=== PATIENT | female | born 1970 | race Caucasian/White ===

== ENCOUNTER 2019-12-09 15:46 | Emergency (ER) | payer OTHER, SELFPAY ==
[2019-12-09 15:52] VITALS: BP 147/75; PULSE 81; RESP 16; TEMP 36.8; O2SAT 98
--- NOTE | 2019-12-09 16:12 | ED.EYEPROB ---
HPI - Eye Problem General Chief complaint: Eye Problems Stated complaint: right eye Time Seen by Provider: 12/09/19 16:12 Source: patient Mode of arrival: ambulatory Limitations: no limitations History of Present Illness HPI Narrative: Fito Finn is a 49 yo female with right eye pain and small lesion in outer canthus lower right eye-states eye was crusted this morning and was painful. Is been evolving for the past 2 days. Yesterday while on corner of eye was itchy and painful Related Data Allergies Allergy/AdvReac Type Severity Reaction Status Date / Time No Known Allergies Allergy Verified 12/09/19 16:02 Review of Systems Review of Systems: Narrative: CONSTITUTIONAL: Denies fever, chills, sweats. EYES: Denies visual changes, mild redness, discharge only morning. Bump on lower outer lid ENT: Denies rhinorrhea, congestion, sore throat, otalgia. CARDIOVASCULAR: Denies chest pain, palpitations, edema. RESPIRATORY: Denies dyspnea, wheezing, cough GASTROINTESTINAL: Denies abdominal pain, nausea, vomiting, diarrhea. GENITOURINARY: Denies dysuria, hematuria, abnormal discharge SKIN: Denies rash or itching. NEUROLOGIC: Denies numbness, or focal weakness. PSYCHIATRIC: Denies anxiety or depression. [facility] Family History Family History Other No acute medical problems Social History Social History (Updated 12/09/19 @ 16:26 by Macy Neely CNP) Smoking status: Never smoker Alcohol intake: never Comments At time of signature, I agree with nursing past medical, surgical, social and family history. There is no relevant family history pertinent to the presenting complaint. Exam Narrative: Exam Narrative: GENERAL: This is a well-nourished, well-developed patient. HEAD: normocephalic, atraumatic. EYES: PERRL. Sclera mild injection Vision is grossly intact. Small bump noted in outer canthus of the lower lid, tenderness. Of lesion; no jenelle-ocular tenderness noted EARS: External ears normal. Hearing grossly intact. NOSE: External nose normal without nasal discharge, nares without redness, no rhinorrhea. THROAT: Mucous membranes moist, NECK: Neck supple, CARDIOVASCULAR: Regular rate and rhythm without murmurs, gallops, or rubs. RESPIRATORY: Clear to auscultation. Breath sounds equal bilaterally. No wheezes, rales, or rhonchi. GASTROINTESTINAL: Abdomen soft, SKIN: warm, intact with no suspicious lesions or rash, good texture and turgor. NEURO: awake, alert, and oriented to person, place and time. There were no obvious focal neurologic abnormalities. Steady gait EXTREMITIES: Normal range of motion. BACK: Nontender without deformity Course Course Emergency Course: Started on polymyxin eye ointment; warm soaks 2-3 times a day to use ointment and warm soaks 5 days Vital Signs Vital signs: Vital Signs Temperature 98.3 F 12/09/19 15:52 Pulse Rate 81 12/09/19 15:52 Respiratory Rate 16 12/09/19 15:52 Blood Pressure 147/75 H 12/09/19 15:52 Pulse Oximetry 98 12/09/19 15:52 Temperature 98.3 F 12/09/19 15:52 Pulse Rate 81 12/09/19 15:52 Respiratory Rate 16 12/09/19 15:52 Blood Pressure 147/75 H 12/09/19 15:52 Pulse Oximetry 98 12/09/19 15:52 MDM - Eye Problem Differential Diagnosis Differential diagnosis: Likely corneal abrasion, conjunctivitis and other (Hordeolum versus conjunctivitis) Discharge Plan Discharge Clinical Impression: Bacterial conjunctivitis Hordeolum Qualifiers: Hordeolum type: externum Laterality: right Eyelid: lower Qualified Code(s): H00.012 - Hordeolum externum right lower eyelid Patient Disposition: Home, Self-Care Condition: Stable Instructions: Stye (ED), Conjunctivitis (ED) Prescriptions: New hyhkzvpt-qjzxqxqghq-etohfpyjk 3.5-400-10,000 bz-vrbq-rdzo/g ointment 1 applic EACH EYE TID Qty: 3.5 RF: 0 Follow-up/Referrals: Louann,PRIYANKA Jacinto [Primary Care Provider] - Time
== END 2019-12-09 16:45 | disposition home or self-care (01) ==
PROVIDERS: Emergency Provider Nurse Practitioner; PCP Physician Assistant
DX: H10.9 Unspecified conjunctivitis (principal); H00.012 Hordeolum externum right lower eyelid
CPT/HCPCS: 99213; G0463

== ENCOUNTER 2021-08-13 15:43 | Emergency (ER) | payer OTHER, SELFPAY ==
[2021-08-13 15:50] VITALS: BP 142/83; PULSE 68; RESP 20; TEMP 36.1; O2SAT 98
--- NOTE | 2021-08-13 16:18 | ED.DENTAL ---
HPI - Dental/Oral General Chief complaint: Dental/Oral Stated complaint: tooth infection Time Seen by Provider: 08/13/21 16:18 Source: patient Mode of arrival: ambulatory Limitations: no limitations History of Present Illness HPI Narrative: 51 yo F presents with c/o R lower dental pain that started last night. Woke up today with swelling to R lower jaw. Has been taking ibuprofen and tylenol to relieve pain. Called dentist and no longer taking her insurance. States that she recently ate popcorn and had a few kernels stuck in teeth. afebrile. All systems reviewed and negative except as noted above. Related Data Allergies Allergy/AdvReac Type Severity Reaction Status Date / Time No Known Allergies Allergy Verified 12/09/19 16:02 Review of Systems Review of Systems: CONSTITUTIONAL: Denies fever, chills, or sweats. EYES: Denies visual changes, redness, or discharge. ENT: Denies rhinorrhea, congestion, sore throat, or otalgia. Reports right lower dental pain with facial swelling. CARDIOVASCULAR: Denies chest pain, palpitations, or edema. RESPIRATORY: Denies cough or dyspnea. GASTROINTESTINAL: Denies abdominal pain, nausea, vomiting, or diarrhea. GENITOURINARY: Denies dysuria or hematuria. SKIN: Denies rash or itching. MUSCULOSKELETAL: Denies back pain, joint pain, or myalgia. NEUROLOGIC: Denies headache, numbness, or weakness. PSYCHIATRIC: Denies anxiety or depression. All other systems reviewed are negative, except as documented in HPI. PMFSH Family History Family History Other No acute medical problems Social History Social History (Updated 12/09/19 @ 16:26 by Macy Neely CNP) Smoking status: Never smoker Alcohol intake: never Comments At time of signature, agree with nursing past medical, surgical, social and family history. There is no relevant family history pertinent to the presenting complaint. Exam Narrative: GENERAL: This is a well-nourished, well-developed patient, in no apparent distress. HEAD: normocephalic, atraumatic. mild swelling to R lower saw. no fluctuance. no erythema or warmth to skin. EYES: PERRL. Sclera clear/white. Vision is grossly intact. EARS: External ears normal, auditory canals clear and without drainage, TMs normal without perforation. Hearing grossly intact. NOSE: External nose normal with no obvious nasal discharge, nares without redness, no rhinorrhea. THROAT: Mucous membranes moist, posterior pharynx clear. NECK: Neck supple, non-tender without lymphadenopathy, masses or thyromegaly. CARDIOVASCULAR: Regular rate and rhythm without murmurs, gallops, or rubs. RESPIRATORY: Clear to auscultation. Breath sounds equal bilaterally. No wheezes, rales, or rhonchi. GASTROINTESTINAL: Abdomen soft, non-tender, nondistended. Bowel sounds are active. No hepato-splenomegaly, or palpable masses. No guarding. SKIN: warm, Dry, intact with no suspicious lesions or rash, good texture and turgor. NEURO: awake, alert, and oriented to person, place and time. There were no obvious focal neurologic abnormalities. EXTREMITIES: No joint tenderness, effusion, or edema noted. No calf tenderness. Negative Homans sign bilaterally. BACK: Nontender without deformity. No CVA tenderness. HENMT: Teeth image: 1. tenderness to tooth #27. Erythema to gums surround tooth. no fluctuance noted. Course Course Level of Care: Express Care Visit Vital Signs Vital signs: Vital Signs Temperature 36.1 C L 08/13/21 15:50 Pulse Rate 68 08/13/21 15:50 Respiratory Rate 20 08/13/21 15:50 Blood Pressure 142/83 H 08/13/21 15:50 Pulse Oximetry 98 08/13/21 15:50 Temperature 36.1 C L 08/13/21 15:50 Pulse Rate 68 08/13/21 15:50 Respiratory Rate 20 08/13/21 15:50 Blood Pressure 142/83 H 08/13/21 15:50 Pulse Oximetry 98 08/13/21 15:50 Reviewed MDM - Dental/Oral MDM Narrative Medical decision making narrative: Patient is aware of diagn
== END 2021-08-13 16:37 | disposition home or self-care (01) ==
PROVIDERS: Emergency Provider Nurse Practitioner Family; PCP Physician Assistant
DX: K08.89 Other specified disorders of teeth and supporting structures (principal)
CPT/HCPCS: 99213; G0463

== ENCOUNTER 2022-03-10 15:38 | Emergency (ER) | payer OTHER, SELFPAY ==
--- NOTE | 2022-03-10 15:41 | ED.EXTPRO ---
HPI - Extremity Problem General Chief complaint: Extremity Problem,Nontraumatic Stated complaint: Right knee pain Time Seen by Provider: 03/10/22 15:41 Source: patient Mode of arrival: ambulatory Limitations: no limitations History of Present Illness HPI Narrative: Ms. Finn is a 51-year-old female patient presenting to the clinic today with complaints of right knee pain x2 days. She reports she was outside playing with her grand kids and tweaked her knee. She reports that she is also been standing on concrete at work and that does not seem to help it. She reports every time she twisted it feels as though it is a pulling sensation with burning and then it spasms. Related Data Allergies Allergy/AdvReac Type Severity Reaction Status Date / Time No Known Allergies Allergy Verified 12/09/19 16:02 Review of Systems Review of Systems: Pertinent positives per HPI. Patient denies any fever, chills, rash, headache, visual changes, dizziness, cough, runny nose, sore throat, shortness of breath, chest pain, palpitations, nausea, vomiting, diarrhea, constipation, abdominal pain, or any urinary issues. [facility] Family History Family History Other No acute medical problems Social History Social History Smoking status: Never smoker Alcohol intake: never Comments At the time of my signature, I reviewed and agree with the nursing past medical, surgical, social, and family history. There is no relevant family history pertinent to the patient complaint. Exam Narrative: General: Well-developed, well nourished, in no apparent distress Head: Normocephalic, atraumatic. Cardio: Regular rate and rhythm, s1 and s2 normal, no murmur appreciated. Resp: Clear to auscultation bilaterally, no rhonchi, rales, wheezing or rubs. Musculoskeletal: No deformity, no swelling noted, tender to palpation over the MCL and the hamstring tendon, pain with full extension of the right knee to the hamstring tendon, grossly normal range of motion, muscle strength strong and equal, peripheral pulse strong, no edema, no cyanosis, normal gait and station Course Course Emergency Course: Portions of this record may have been created with voice recognition software. Level of Care: Express Care Visit Vital Signs Vital signs: Vital signs reviewed MDM - Extremity (Nontraumatic) MDM Narrative Medical decision making narrative: At the time of visit patient is resting comfortably on the exam table. She has pain over the hamstring tendon and the MCL ligament. I suspect the patient may have a muscle strain, tendon strain, and MCL strain. Supportive measures were discussed with the patient she voiced understanding of discharge instructions and agrees with the treatment plan. Discharge Plan Discharge Clinical Impression: Strain of insertion of tendon of hamstring muscle MCL sprain of right knee Qualifiers: Encounter type: initial encounter Qualified Code(s): S83.411A - Sprain of medial collateral ligament of right knee, initial encounter Patient Disposition: Home, Self-Care Condition: Stable Instructions: Antibiotic Form, Knee Sprain (ED), Hamstring Injury (ED), Hinged Knee Brace (ED) Additional Instructions: Suspicious for tendon strain/MCL Rest, ice, and elevate Wear hinged knee brace while up and walking Take Tylenol/Motrin as needed for pain Follow-up with your PCP in 1 week if symptoms persist or sooner if they worsen Prescriptions: New cyclobenzaprine 10 mg tablet 10 mg PO Q8H PRN (Reason: muscle spasm) 7 Days Qty: 21 0RF naproxen 500 mg tablet 500 mg PO BID PRN (Reason: pain) 7 Days Qty: 14 0RF Follow-up/Referrals: Louann,PRIYANKA Jacinto [Primary Care Provider] - Stand Alone Forms: Work/School Release IP Time of Disposition: 15:57 Quality NIHSS Nursing Documentation ED NIHSS nursing d
[2022-03-10 15:48] VITALS: BP 132/64; PULSE 77; RESP 16; TEMP 36.3; O2SAT 97
== END 2022-03-10 16:07 | disposition home or self-care (01) ==
PROVIDERS: Emergency Provider Nurse Practitioner Family; PCP Physician Assistant
DX: S83.411A Sprain of medial collateral ligament of right knee, initial encounter (principal); X58.XXXA Exposure to other specified factors, initial encounter
CPT/HCPCS: 99213; G0463

== ENCOUNTER 2022-07-31 15:14 | Emergency (ER) | payer OTHER, SELFPAY ==
[2022-07-31 15:22] VITALS: BP 147/79; PULSE 81; RESP 20; TEMP 36.8; O2SAT 100
--- NOTE | 2022-07-31 15:42 | ED.URI ---
HPI - URI/Sore Throat General Chief Complaint: Upper Respiratory Infection Stated Complaint: strep throat Time Seen by Provider: 07/31/22 15:42 History of Present Illness HPI Narrative: Patient presents with a sore throat. Patient states her grandchild was visiting 10 her couple days ago and recently tested positive for strep throat. No trouble swallowing no drooling. Patient denies any other symptoms or concerns Related Data Allergies Allergy/AdvReac Type Severity Reaction Status Date / Time No Known Allergies Allergy Verified 12/09/19 16:02 Review of Systems Review of Systems: CONSTITUTIONAL: Denies fever, chills, or sweats. EYES: Denies visual changes, redness, or discharge. ENT: Denies rhinorrhea, congestion, sore throat, or otalgia. CARDIOVASCULAR: Denies chest pain, palpitations, or edema. RESPIRATORY: Denies cough or dyspnea. GASTROINTESTINAL: Denies abdominal pain, nausea, vomiting, or diarrhea. GENITOURINARY: Denies dysuria or hematuria. SKIN: Denies rash or itching. MUSCULOSKELETAL: Denies back pain, joint pain, or myalgia. NEUROLOGIC: Denies headache, numbness, or weakness. PSYCHIATRIC: Denies anxiety or depression. [facility] Family History Family History Other No acute medical problems Social History Social History Smoking status: Never smoker Alcohol intake: never Comments At time of signature, agree with nursing past medical, surgical, social and family history. There is no relevant family history pertinent to the presenting complaint Exam Narrative: GENERAL: Well-appearing, well-nourished, and in no acute distress. HEAD: Normocephalic, atraumatic. EYES: PERRLA and EOMI. ENT: Nares clear, no rhinorrhea or epistaxis. Mucous membranes moist. Mild pharyngeal erythema, no trismus no trouble swallowing can open mouth fully NECK: Supple. CHEST: Clear to auscultation. No respiratory distress. HEART: Regular rate and rhythm. No murmur heard. Normal peripheral pulses. ABDOMEN: Soft, nontender, nondistended, normal active bowel sounds. EXTREMITIES: Normal range of motion. No edema. SKIN: Warm, dry, no rash. NEURO: No focal deficits. Alert and oriented x3. Gely Coma Scale Eye Opening: Spontaneous 4 [place] Coma Scale Motor: Obeys Commands 6 [place] Coma Scale Verbal: Oriented 5 [place] Coma Scale Total 15 Course Course Level of Care: Express Care Visit Vital Signs Vital signs: Vital Signs Temperature 36.8 C 07/31/22 15:22 Pulse Rate 81 07/31/22 15:22 Respiratory Rate 20 07/31/22 15:22 Blood Pressure 147/79 H 07/31/22 15:22 Pulse Oximetry 100 07/31/22 15:22 Oxygen Delivery Room Air 07/31/22 15:22 Temperature 36.8 C 07/31/22 15:22 Pulse Rate 81 07/31/22 15:22 Respiratory Rate 20 07/31/22 15:22 Blood Pressure 147/79 H 07/31/22 15:22 Pulse Oximetry 100 07/31/22 15:22 Oxygen Delivery Room Air 07/31/22 15:22 By blood pressure follow-up MDM - URI/Sore Throat Lab Data Labs: Strep Screen Positive Group A Strep *(Reference Range: Negative)* Discharge Plan Discharge Clinical Impression: Pharyngitis Patient Disposition: Home, Self-Care Condition: Stable Instructions: Antibiotic Form, Strep Throat (ED) Additional Instructions: Increase fluids especially juices and water Lime-rxq-kbguwkz cough and cold medicine of your choice for your symptoms Salt water gargles, throat lozenges or throat sprays as desired change toothbrush in 3-5 days Antibiotic as directed--finished the medication It may take the antibiotic 2-3 days to control the fever/symptoms ) You tested positive for Group A strep. Infection control: *Take the entire course of antibiotics. *Throw away your current toothbrush and begin using a new toothbrush in 48 hours in order to prevent re-infe
== END 2022-07-31 15:47 | disposition home or self-care (01) ==
PROVIDERS: Emergency Provider Nurse Practitioner Family
DX: J02.9 Acute pharyngitis, unspecified (principal)
CPT/HCPCS: 87880; 99213; G0463

== ENCOUNTER 2022-08-06 07:16 | Outpatient (CLI) | payer OTHER, SELFPAY ==
--- NOTE | ~2022-08-06 | CT_ITS ---
CT of the Abdomen and Pelvis: Indication: Menorrhagia Technique: 2.5 mm axial scans were obtained through the abdomen and pelvis following intravenous adm inistration of 100 cc of Omnipaque 350. Dose reduction technique was used on this scan by utilizing a utomated exposure control and iterative reconstruction technique. The dose-length product (DLP) was 1 573.96 mGy-cm. Findings: Scans through the lung bases are unremarkable. The liver, spleen, pancreas, gallbladder, adrenals and kidneys are within normal limits. No evidence of aortic aneurysm. No lymphadenopathy. No bowel obstruction or bowel wall thickening. There is no evidence to suggest acute appendicitis. Images through the pelvis were performed. Urinary bladder unremarkable. No adnexal mass seen. No asci christelle. There is severe degenerative spondylitic change of the lumbar spine, probable severe canal stenosis a t L4-L5 and L2-L3. Impression: No acute abnormality seen. No significant abnormality of the system identified on this exam. Advanced degenerative spondylosis of the lumbar spine, as noted above. Reviewed, dictated and finalized at location . [employer] Impression: No acute abnormality seen. No significant abnormality of the system identifi ed on this exam. Advanced degenerative spondylosis of the lumbar spine, as noted above.
== END 2022-08-06 07:17 | disposition home or self-care (01) ==
LOC: ANHIMG 07:20
PROVIDERS: PCP Physician Assistant; Visit Provider Nurse Practitioner Obstetrics & Gynecology
DX: R19.07 Generalized intra-abdominal and pelvic swelling, mass and lump (principal); M47.816 Spondylosis without myelopathy or radiculopathy, lumbar region
CPT/HCPCS: 74177; Q9967

== ENCOUNTER 2023-09-24 19:41 | Observation (INO) | payer OTHER, SELFPAY ==
--- NOTE | ~2023-09-24 | CT_ITS ---
EXAMINATION: CT abdomen pelvis w con DATE: 09/24/2023 20:49 INDICATION: abdominal pain TECHNIQUE: Computed tomography (CT) of the abdomen and pelvis was performed with 100 mL Omnipaque-350 intravenous contrast. Automated exposure control and iterative reconstruction technique were employe d. The dose-length product was 1740.36 mGy-cm. COMPARISON: 08/06/2022, report only. FINDINGS: Lower thorax: Unremarkable Liver: Diffuse fatty infiltration. Enlarged. Biliary/Gallbladder: Gallbladder is normal. No bile duct dilation. Pancreas: Moderate atrophy. Spleen: Enlarged. Adrenals:No mass. Kidneys: Mild stranding about the left renal pelvis and ureter. Patchy enhancement in the left lower pole. Mild pelviectasis. Normal right kidney. No suspicious mass. No obstructing calcification. GI tract: No small or large bowel dilation. Normal appendix. Mesentery/Peritoneum: No ascites, mass, or free air. Retroperitoneum: No mass. Pelvis: Moderate urinary bladder wall edema. Fibroid uterus. Normal bilateral ovaries. Soft Tissues: Soft tissues and body wall unremarkable. Bones: No acute osseous finding. IMPRESSION: Hepatosplenomegaly and hepatic steatosis. Findings suggestive of cystitis with ascending infection on the left and left pyelonephritis. Reviewed, dictated and finalized at location K. IMPRESSION: Hepatosplenomegaly and hepatic steatosis. Findings suggestive of cystitis with ascending infection on the left and left p yelonephritis.
[2023-09-24 19:35] VITALS: BP 150/67; PULSE 92; RESP 24; TEMP 36.7; O2SAT 98
[2023-09-24 19:50] VITALS: PULSE 98; RESP 15; O2SAT 98
[2023-09-24] MEDS: MORPHINE SULFATE (*CRX) 4 MG/ML INJ IV PUSH (19:59)
[2023-09-24] MEDS: ONDANSETRON INJ 4 MG/2 ML VIAL IV PUSH (19:59)
[2023-09-24] MEDS: SODIUM CHLORIDE 0.9% IV 1,000 ML 999 ML IV CONT (19:59)
--- NOTE | 2023-09-24 20:02 | ED.GENADULT ---
HPI - General Adult General Chief complaint: Abdominal Pain Stated complaint: abd pain Time Seen by Provider: 09/24/23 19:45 History of Present Illness HPI narrative: patient is 53-year-old female presents emergency department with chief of abdominal pain. Patient reports she is being followed by OBGYN for some growths in her uterus and reports that she has had ultrasounds and also has recently been passing tissue. The patient reports that she started having severe abdominal pain feels though she is having contractions patient reports that she now has diffuse pain throughout her abdomen reports that has not improved by anything. Related Data Home Medications Medication Instructions Recorded Confirmed No Home Medications 09/25/23 09/25/23 Allergies Allergy/AdvReac Type Severity Reaction Status Date / Time No Known Allergies Allergy Verified 09/24/23 19:51 Review of Systems Review of Systems: A 10 system review of systems was completed on the patient and is negative except for what is stated in the HPI. Nursing and ancillary documentation was reviewed. [facility] Past Medical History Medical History (Updated 09/25/23 @ 16:27 by Thu Guerrero APRN) Diabetes type 2, uncontrolled Uterine fibroid Family History Family History Other No acute medical problems Social History Social History Smoking status: Never smoker Alcohol intake: never Substance use: never Substance use type: does not use Do You Feel Safe in your Home?: Yes Lack of Transportation: No Lack of Food: Never True Current Housing: I Have Housing Concerned About Future Housing: No Difficulty Paying Gas/Electric Bills: No Difficulty Paying for Meds: No Currently Unemployed: No Education: High School Diploma/GED Difficulty w/ Childcare or Family Care: No Spiritual care concerns: No Exam Narrative: GENERAL: Well-appearing, well-nourished, and in no acute distress. HEAD: Normocephalic, atraumatic. EYES: PERRLA and EOMI. ENT: Nares clear, no rhinorrhea or epistaxis. Mucous membranes moist. NECK: Supple. CHEST: Clear to auscultation. No respiratory distress. HEART: Regular rate and rhythm. No murmur heard. Normal peripheral pulses. ABDOMEN: Soft, Diffusely tender to palpation, nondistended, normal active bowel sounds. EXTREMITIES: Normal range of motion. No edema. SKIN: Warm, dry, no rash. NEURO: No focal deficits. Alert and oriented x3. PSYCH: Normal mood and affect. Course Vital Signs Vital signs: Vital Signs Temperature 36.7 C 09/24/23 19:35 Pulse Rate 92 09/24/23 19:35 Respiratory Rate 24 H 09/24/23 19:35 Blood Pressure 150/67 H 09/24/23 19:35 Pulse Oximetry 98 09/24/23 19:35 Oxygen Delivery Room Air 09/24/23 19:35 Temperature 36.7 C 09/26/23 06:00 Pulse Rate 86 09/26/23 06:00 Respiratory Rate 18 09/26/23 06:00 Blood Pressure 150/72 H 09/26/23 06:00 Pulse Oximetry 93 09/26/23 06:00 Oxygen Delivery Room Air 09/25/23 08:00 Medical Decision Making MDM Narrative Medical decision making narrative: Differential diagnosis includes intra-abdominal infection, pyelonephritis, UTI, abdominal mass, laboratory studies were obtained on the patient showed CBC with white count 12.6 electrolytes are within normal limits urinalysis showed greater than 100 white blood cells 3+ bacteria electrolytes showed a elevated blood sugar the patient has no prior history of diabetes CT scan of the abdomen pelvis showed Hepatosplenomegaly and hepatic steatosis. Findings suggestive of cystitis with ascending infection on the left and left pyelonephritis. the patient is feeling much better this time patient given a dose Rocephin in the emergency department. Given the hyperglycemia and the pyelonephritis the case will be discussed with
[2023-09-24 20:14] LABS: Basophils Percent Auto 0.2 % (0.2-1.2); Eosinophils Absolute Auto 0.1 K/mm3 (0-0.3); Eosinophils Percent Auto 0.4 % (0-4.4); Hemoglobin 14.7 g/dL (12.0-15.0); Immature Granulocyte Absolute 0.06 K/mm3 (0.00-0.031); Immature Granulocyte Percent A 0.5 % (0-0.5); Lymphocytes Absolute Auto 0.61 K/mm3 (0.9-3.2); Lymphocytes Percent Auto 4.8 % (18.3-44.2); Mean Corpuscular HGB Conc 32.7 g/dl (32-36); Mean Corpuscular Hemoglobin 28.5 pg (26-34); Mean Corpuscular Volume 87.2 fl (80-100); Mean Platelet Volume 9.3 fl (7.4-10.4); Monocytes Absolute Auto 0.3 K/mm3 (0.1-0.6); Monocytes Percent Auto 2.3 % (2.6-8.5); Neutrophils Absolute Auto 11.6 K/mm3 (1.3-6.7); Neutrophils Percent Auto 91.8 % (45.5-73.1); Platelet Count Result 195 k/mm3 (150-375); Red Blood Count 5.16 M/mm3 (4.2-5.4); White Blood Count 12.6 K/mm3 (4.5-10.0)
[2023-09-24 20:15] VITALS: PULSE 94; RESP 15; O2SAT 96
[2023-09-24 20:29] LABS: Alanine Aminotransferase 30 U/L (6-35); Albumin Level 4.4 g/dL (3.5-5.1); Alkaline Phosphatase 57 U/L (38-126); Anion Gap 7 mmol/L (4-12); Aspartate Amino Transferase 22 U/L (14-36); Bilirubin,Total 0.6 mg/dL (0.2-1.3); Blood Urea Nitrogen 11 mg/dL (7-17); Calcium 9.4 mg/dL (8.4-10.2); Carbon Dioxide 26 mmol/L (22-30); Chloride 101 mmol/L (98-107); Estimated CRCL calculation 116 ml/min; Estimated Glomerular Filt Rate > 60; Glucose 328 mg/dL (65-110); Lipase 57 U/L (23-300); Potassium 4.2 mmol/L (3.4-5.0); Sodium 134 mmol/L (137-145)
[2023-09-24 20:40] LABS: Appearance Urine Cloudy (Clear); Bacteria Urine 3+ /hpf; Bilirubin Urine Negative (Negative); Blood Urine 3+ (Negative); Color Urine Yellow (Yellow); Glucose Urine UA 3+ mg/dL (Negative); Ketones Urine Negative (Negative); Leukocyte Esterase Ur 2+ LEU/UL (Negative); Nitrate Urine Positive (Negative); Non Pathogenic Casts 0-2; Protein Urine 2+ mg/dL (Negative); Specific Grav Ur 1.024 (1.001-1.035); Squamous Epithelial Cell Urine None Seen /hpf (Few); Urobilinogen Urine 0.2 mg/dL (<2.0); WBC Urine >100 /hpf (0-3); pH Urine 5.5 (5.0-9.0)
[2023-09-24 20:42] LABS: Add Urine Microscopic? YES
[2023-09-24 21:10] VITALS: BP 168/77; PULSE 92; RESP 18; O2SAT 96
[2023-09-24 21:51] LABS: Hemoglobin A1C 11.1 % (<5.7)
[2023-09-24] MEDS: SODIUM CHLORIDE 0.9% IV 1,000 ML 125 ML IV CONT ×2 (21:54→23:24)
--- NOTE | 2023-09-24 21:55 | PM.IMHP ---
H&P: HPI History of Present Illness Date/Time: 09/24/23 21:55 Chief Complaint: abdominal cramps Narrative: This is a 53-year-old female with past medical history significant for morbid obesity, uterine fibroids, patient presents to the emergency room due to abdominal pain, cramping, nausea, vomiting. Patient has been in her usual state of health up until today. Denies any fevers, rigors, chills, bleeding. Preliminary workup was significant for urinalysis numerous WBCs present. A CT of abdomen and pelvis was significant for ascending pyelonephritis. Patient has been admitted for further evaluation management and treatment. EXAMINATION: CT abdomen pelvis w con DATE: 09/24/2023 20:49 INDICATION: abdominal pain TECHNIQUE: Computed tomography (CT) of the abdomen and pelvis was performed with 100 mL Omnipaque-350 intravenous contrast. Automated exposure control and iterative reconstruction technique were employed. The dose-length product was 1740.36 mGy-cm. COMPARISON: 08/06/2022, report only. FINDINGS: Lower thorax: Unremarkable Liver: Diffuse fatty infiltration. Enlarged.? Biliary/Gallbladder: Gallbladder is normal. No bile duct dilation. Pancreas: Moderate atrophy. Spleen: Enlarged. Adrenals:No mass. Kidneys: Mild stranding about the left renal pelvis and ureter. Patchy enhancement in the left lower pole. Mild pelviectasis. Normal right kidney. No suspicious mass. No obstructing calcification. GI tract: No small or large bowel dilation. Normal appendix. Mesentery/Peritoneum: No ascites, mass, or free air. Retroperitoneum: No mass. Pelvis: Moderate urinary bladder wall edema. Fibroid uterus. Normal bilateral ovaries. Soft Tissues: Soft tissues and body wall unremarkable. Bones:? No acute osseous finding. IMPRESSION: Hepatosplenomegaly and hepatic steatosis. Findings suggestive of cystitis with ascending infection on the left and left pyelonephritis. Review of Systems Review of Systems: abdominal cramping, nausea, vomiting Constitutional: Constitutional: Denies chills and Denies fever(s) Eyes: Eyes: Denies change in vision ENT: Denies dysphagia and Denies odynophagia Cardiovascular: Cardiovascular: Denies chest pain, Denies radiating jaw, neck or arm pain and Denies palpitations Respiratory: Respiratory: Denies chest congestion, Denies cough, Denies excessive phlegm production and Denies dyspnea Gastrointestinal: Gastrointestinal: Reports abdominal pain, Denies dyspepsia, Denies heartburn, Denies diarrhea, Reports nausea and Reports vomiting Genitourinary: Genitourinary: Denies dysuria and Reports pelvic pain Musculoskeletal: Musculoskeletal: Denies back pain Integumentary/Breasts: Skin/Breast: Denies rash Neurologic: Denies focal weakness and Denies Sensory deficit (Neuro) Psychiatric: Psychiatric: Reports no additional psychiatric complaints and Reports as per HPI Endocrine: Endocrine: Denies cold intolerance, Denies fatigue, Denies flushing, Denies heat intolerance, Denies polyphagia, Denies polydipsia, Denies polyuria and Denies palpitations Hematologic/Lymphatic: Hematologic/Lymphatic: Reports no additional hematologic/lymphatic complaints and Reports as per HPI Allergic/Immunologic: Allergic/Immunologic: Reports no additional allergic/immunologic complaints and Reports as per HPI PMFSH Family History Family History Other No acute medical problems Social History Social History Smoking status: Never smoker Alcohol intake: never Meds Home Medications and Allergies Home Medications Medication Instructions Recorded Confirmed Type amoxicillin 500 mg capsule 500 mg PO Q12H 10 days #20 caps 07/31/22 Rx cephalexin 500 mg capsule 500 mg PO TID 7 days #21 caps 09/24/23 Rx hydrocodone 5 mg-acetaminophen 325 1 tablet PO Q6H PRN pain 3 days 09/24/23
--- NOTE | 2023-09-24 22:11 | PC.NURSE ---
care and report given to BRITTANY Mcneil. all questions answered.
[2023-09-24 22:49] VITALS: BMI 50.4
[2023-09-24 22:51] VITALS: BP 157/70; PULSE 92; RESP 20; TEMP 37.3; O2SAT 92; BMI 50.4
[2023-09-25 06:00] VITALS: BP 134/65; PULSE 88; RESP 22; TEMP 36.1; O2SAT 94
[2023-09-25 07:28] LABS: Glucose Point of Care 330 mg/dl (65-105)
[2023-09-25 11:20] LABS: Glucose Point of Care 351 mg/dl (65-105)
[2023-09-25 12:05] LABS: Basophils Percent Auto 0.3 % (0.2-1.2); Eosinophils Percent Auto 0.5 % (0-4.4); Hematocrit 41.5 % (37.0-47.0); Hemoglobin 13.5 g/dL (12.0-15.0); Immature Granulocyte Absolute 0.02 K/mm3 (0.00-0.031); Immature Granulocyte Percent A 0.3 % (0-0.5); Lymphocytes Percent Auto 13.9 % (18.3-44.2); Mean Corpuscular HGB Conc 32.5 g/dl (32-36); Mean Corpuscular Hemoglobin 28.4 pg (26-34); Mean Corpuscular Volume 87.4 fl (80-100); Mean Platelet Volume 9.6 fl (7.4-10.4); Monocytes Absolute Auto 0.5 K/mm3 (0.1-0.6); Monocytes Percent Auto 6.1 % (2.6-8.5); Neutrophils Absolute Auto 6.3 K/mm3 (1.3-6.7); Neutrophils Percent Auto 78.9 % (45.5-73.1); Platelet Count Result 159 k/mm3 (150-375); Red Blood Count 4.75 M/mm3 (4.2-5.4); Red Cell Distribution Width 13.2 % (11.5-14.5); White Blood Count 7.9 K/mm3 (4.5-10.0)
[2023-09-25 12:29] LABS: Alanine Aminotransferase 25 U/L (6-35); Alkaline Phosphatase 50 U/L (38-126); Anion Gap 8 mmol/L (4-12); Aspartate Amino Transferase 17 U/L (14-36); Bilirubin,Total 0.8 mg/dL (0.2-1.3); Blood Urea Nitrogen 10 mg/dL (7-17); Calcium 9.1 mg/dL (8.4-10.2); Carbon Dioxide 25 mmol/L (22-30); Chloride 103 mmol/L (98-107); Estimated CRCL calculation 116 ml/min; Estimated Glomerular Filt Rate > 60; Glucose 336 mg/dL (65-110); Hemoglobin A1C 10.8 % (<5.7); Magnesium 2.3 mg/dL (1.6-2.3); Sodium 136 mmol/L (137-145)
[2023-09-25] MEDS: SODIUM CHLORIDE 0.9% IV 1,000 ML 125 ML IV CONT (12:36)
[2023-09-25] MEDS: INSULIN ASPART (*BKC) 100 UNITS/ML SUB-Q ×3 (12:36→20:35)
--- NOTE | 2023-09-25 13:33 | PCCCNOTE ---
On 09/25/23, the student, [ Crista Escamilla], provided care and completed [facility] documentation on this patient. I have reviewed the student's documentation and agree with the findings.
[2023-09-25 14:00] VITALS: BP 130/85; PULSE 84; RESP 18; TEMP 36.6; O2SAT 98
--- NOTE | 2023-09-25 15:15 | PM.IMPN ---
Progress Note: A&P Assessment and Plan (1) UTI (urinary tract infection): Code(s): N39.0 - Urinary tract infection, site not specified Status: Acute Assessment and Plan: 09/24/23: admit to regular medical floor started on Rocephin await cultures 09/25/23: UTI considered complicated due to the ascending infection on the left and pyelonephritis CT scan of the abdomen and pelvis shows cystitis with ascending infection on the left and left pyelonephritis, hepatosplenomegaly and hepatic steatosis UA showing 2+ protein, 3+ glucose, 3+ urine blood, positive nitrate, 2+ leukocytes, 7-20 urine RBCs, greater than 100 urine wbc's, 3+ bacteria. Urine and blood cultures pending Continue Rocephin 2 g daily (2) Pyelonephritis: Code(s): N12 - Tubulo-interstitial nephritis, not specified as acute or chronic Status: Acute Assessment and Plan: 09/24/23: on antibiotics continue to monitor 09/25/2023: See above plan of care (3) Diabetes type 2, uncontrolled: Status: Acute Assessment and Plan: 09/25/2023: New diagnosed Type II DM this admission Hemoglobin A1c 10.8 High-dose sliding scale insulin ordered Accu-Cheks AC and HS Lantus 10 units at HS ordered Hypoglycemic protocol in place Diabetic diet Consult wellness educator Dietitian consult Patient will need metformin and Lantus on discharge as this is a new diagno (4) Acute hyperglycemia: Code(s): R73.9 - Hyperglycemia, unspecified Status: Acute Assessment and Plan: 09/24/23: will add a hemoglobin A1c cover with insulin sliding scale as needed 09/25/2023: See above plan of care (5) Uterine fibroid: Code(s): D25.9 - Leiomyoma of uterus, unspecified Status: Chronic Assessment and Plan: 09/25/23: CT scan showing uterine fibroids She has a follow-up with Dr. Pritchard who is her FUNERAL HOME ASSISTANT next Tuesday Time Spent With Patient Time with patient: 25 - 35 minutes Subjective Date/time seen: 09/25/23 15:15 Interval history: This is a 53-year-old female who presented to the hospital on 09/24/2023 with complaints of abdominal pain. Workup in the hospital included an abdomen pelvis CT which showed hepatosplenomegaly had hepatic steatosis, cystitis with ascending infection on the left and left pyelonephritis. Initial labs showed a white blood cell count of 12.6, sodium 1-134, blood sugar 328, hemoglobin A1c 11.1. A UA was obtained and showed 2+ protein, 3+ glucose, 3+ urine blood, positive nitrate, 2+ leukocytes, greater than 100 urine wbc's, 11-20 urine RBCs, 3+ bacteria. Blood and urine cultures were obtained and are pending. Patient was given 1 L normal saline, Rocephin, Zofran and morphine while in the ED. On examination today patient is alert and oriented x3, sitting on side of bed. Patient denies any fever, chills, nausea, vomiting, diarrhea, abdominal pain, chest pain, shortness a breath. Labs today reveal white blood cell count that 7.9, sodium 136, blood sugar ranging 330-351, TSH was normal at 1.040. Patient does not recall any diagnosis of type 2 diabetes however her hemoglobin A1c this admission was 10.8.She will need to start on Lantus and Metformin upon discharge. Review of Systems Review of Systems: All systems reviewed & are unremarkable except as noted in HPI and below Constitutional: Constitutional: Reports as per HPI and Reports no additional constitutional complaints Eyes: Eyes: Reports as per HPI and Reports no additional eye complaints ENT: Reports system reviewed and no additional complaints, except as documented and Reports as per HPI Cardiovascular: Cardiovascular: Reports as per HPI and Reports no additional cardiovascular complaints Respiratory: Respiratory: Reports as per HPI and Reports no additional respiratory complaints Gastrointestinal: Gastrointestinal: Reports as per HPI and Reports no additional gastrointestinal complaints Genitourinary: Genitourina
[2023-09-25 16:37] LABS: Glucose Point of Care 306 mg/dl (65-105)
[2023-09-25] MEDS: ACETAMINOPHEN 325 MG TABLET 650 MG PO (18:06)
[2023-09-25] MEDS: INSULIN GLARGINE (*BKC) 100 UNITS/ML 10 UNITS SUB-Q (20:35)
[2023-09-25] MEDS: cefTRIAXone 2 GM/NS 100 ML 2 GM/100 ML BAG IVPB (20:35)
[2023-09-25 20:41] LABS: Glucose Point of Care 309 mg/dl (65-105)
[2023-09-25 21:00] VITALS: BP 137/65; PULSE 91; RESP 14; TEMP 36.4; O2SAT 93
[2023-09-26 06:00] VITALS: BP 150/72; PULSE 86; RESP 18; TEMP 36.7; O2SAT 93
[2023-09-26 06:29] LABS: Basophils Percent Auto 0.3 % (0.2-1.2); Eosinophils Percent Auto 0.1 % (0-4.4); Hematocrit 41.1 % (37.0-47.0); Hemoglobin 12.9 g/dL (12.0-15.0); Immature Granulocyte Absolute 0.04 K/mm3 (0.00-0.031); Immature Granulocyte Percent A 0.6 % (0-0.5); Lymphocytes Absolute Auto 0.68 K/mm3 (0.9-3.2); Mean Corpuscular HGB Conc 31.4 g/dl (32-36); Mean Corpuscular Hemoglobin 28.2 pg (26-34); Mean Corpuscular Volume 89.9 fl (80-100); Mean Platelet Volume 9.3 fl (7.4-10.4); Monocytes Absolute Auto 0.5 K/mm3 (0.1-0.6); Neutrophils Absolute Auto 5.6 K/mm3 (1.3-6.7); Platelet Count Result 154 k/mm3 (150-375); Red Blood Count 4.57 M/mm3 (4.2-5.4); Red Cell Distribution Width 13.1 % (11.5-14.5); White Blood Count 6.8 K/mm3 (4.5-10.0)
[2023-09-26 06:44] LABS: Alanine Aminotransferase 23 U/L (6-35); Albumin Level 3.8 g/dL (3.5-5.1); Alkaline Phosphatase 45 U/L (38-126); Anion Gap 6 mmol/L (4-12); Aspartate Amino Transferase 17 U/L (14-36); Bilirubin,Total 0.8 mg/dL (0.2-1.3); Blood Urea Nitrogen 10 mg/dL (7-17); Calcium 9.2 mg/dL (8.4-10.2); Carbon Dioxide 27 mmol/L (22-30); Chloride 101 mmol/L (98-107); Estimated CRCL calculation 116 ml/min; Estimated Glomerular Filt Rate > 60; Glucose 322 mg/dL (65-110); Potassium 4.4 mmol/L (3.4-5.0); Sodium 134 mmol/L (137-145)
[2023-09-26 08:05] LABS: Glucose Point of Care 295 mg/dl (65-105)
[2023-09-26] MEDS: cefTRIAXone 2 GM/NS 100 ML 2 GM/100 ML BAG IVPB (08:53)
[2023-09-26] MEDS: INSULIN ASPART (*BKC) 100 UNITS/ML SUB-Q ×4 (08:54→21:24)
[2023-09-26 09:00] VITALS: BMI 50.4
--- NOTE | 2023-09-26 09:10 | P.PNIM_ITS ---
Progress Note: A&P Assessment and Plan (1) UTI (urinary tract infection): Code(s): N39.0 - Urinary tract infection, site not specified Status: Acute Assessment and Plan: 09/24/23: ?admit to regular medical floor ?started on Rocephin ?await cultures 09/25/23: * UTI considered complicated due to the ascending infection on the left and pyelonephritis * CT scan of the abdomen and pelvis shows cystitis with ascending infection on the left and left pyelonephritis, hepatosplenomegaly and hepatic steatosis * UA showing 2+ protein, 3+ glucose, 3+ urine blood, positive nitrate, 2+ leukocytes, 7-20 urine RBCs, greater than 100 urine wbc's, 3+ bacteria. * Urine and blood cultures pending * Continue Rocephin 2 g daily 09/26/23: * Urine culture showing E coli preliminary read * blood cultures are still pending * Continue Rocephin 2 g daily (2) Pyelonephritis: Code(s): N12 - Tubulo-interstitial nephritis, not specified as acute or chronic Status: Acute Assessment and Plan: 09/24/23: on antibiotics continue to monitor 09/25/2023: * See above plan of care (3) Diabetes type 2, uncontrolled: Status: Acute Assessment and Plan: 09/25/2023: * New diagnosed Type II DM this admission * Hemoglobin A1c 10.8 * High-dose sliding scale insulin ordered * Accu-Cheks AC and HS * Lantus 10 units at HS ordered * Hypoglycemic protocol in place * Diabetic diet * Consult egg producer * Dietitian consult * Patient will need metformin and Lantus on discharge as this is a new diagnosis 09/26/23: * Continue with high-dose sliding scale insulin * Will increase Lantus to 20 units at bedtime * Will start metformin 1000 mg b.i.d. * No other changes, continue with current treatment plan (4) Acute hyperglycemia: Code(s): R73.9 - Hyperglycemia, unspecified Status: Acute Assessment and Plan: 09/24/23: will add a hemoglobin A1c cover with insulin sliding scale as needed 09/25/2023: * See above plan of care (5) Uterine fibroid: Code(s): D25.9 - Leiomyoma of uterus, unspecified Status: Chronic Assessment and Plan: 09/25/23: * CT scan showing uterine fibroids * She has a follow-up with Dr. Pritchard who is her TYPE PROOF REPRODUCER next Tuesday09/26/23: * no change Time Spent With Patient Time with patient: 25 - 35 minutes Subjective Date/time seen: 09/26/23 09:10 Interval history: 09/25/23: This is a 53-year-old female who presented to the hospital on 09/24/2023 with complaints of abdominal pain. Workup in the hospital included an abdomen pelvis CT which showed hepatosplenomegaly had hepatic steatosis, cystitis with ascending infection on the left and left pyelonephritis. Initial labs showed a white blood cell count of 12.6, sodium 1-134, blood sugar 328, hemoglobin A1c 11.1. A UA was obtained and showed 2+ protein, 3+ glucose, 3+ urine blood, positive nitrate, 2+ leukocytes, greater than 100 urine wbc's, 11-20 urine RBCs, 3+ bacteria. Blood and urine cultures were obtained and are pending. Patient was given 1 L normal saline, Rocephin, Zofran and morphine while in the ED. On examination today patient is alert and oriented x3, sitting on side of bed. Patient denies any fever, chills, nausea, vomiting, diarrhea, abdominal pain, chest pain, shortness a breath. Labs today reveal white blood cell count that 7.9, sodium 136, blood sugar ranging 330-351, TSH was normal at 1.040. Patient does not recall any diagnosis of type 2 diabetes however her hemoglobin A1c this admission was 10.8.She wi
--- NOTE | 2023-09-26 09:10 | PM.IMPN ---
Progress Note: A&P Assessment and Plan (1) UTI (urinary tract infection): Code(s): N39.0 - Urinary tract infection, site not specified Status: Acute Assessment and Plan: 09/24/23: ?admit to regular medical floor ?started on Rocephin ?await cultures 09/25/23: UTI considered complicated due to the ascending infection on the left and pyelonephritis CT scan of the abdomen and pelvis shows cystitis with ascending infection on the left and left pyelonephritis, hepatosplenomegaly and hepatic steatosis UA showing 2+ protein, 3+ glucose, 3+ urine blood, positive nitrate, 2+ leukocytes, 7-20 urine RBCs, greater than 100 urine wbc's, 3+ bacteria. Urine and blood cultures pending Continue Rocephin 2 g daily 09/26/23: Urine culture showing E coli preliminary read blood cultures are still pending Continue Rocephin 2 g daily (2) Pyelonephritis: Code(s): N12 - Tubulo-interstitial nephritis, not specified as acute or chronic Status: Acute Assessment and Plan: 09/24/23: on antibiotics continue to monitor 09/25/2023: See above plan of care (3) Diabetes type 2, uncontrolled: Status: Acute Assessment and Plan: 09/25/2023: New diagnosed Type II DM this admission Hemoglobin A1c 10.8 High-dose sliding scale insulin ordered Accu-Cheks AC and HS Lantus 10 units at HS ordered Hypoglycemic protocol in place Diabetic diet Consult certified adapted physical educator Dietitian consult Patient will need metformin and Lantus on discharge as this is a new diagnosis 09/26/23: Continue with high-dose sliding scale insulin Will increase Lantus to 20 units at bedtime Will start metformin 1000 mg b.i.d. No other changes, continue with current treatment plan (4) Acute hyperglycemia: Code(s): R73.9 - Hyperglycemia, unspecified Status: Acute Assessment and Plan: 09/24/23: will add a hemoglobin A1c cover with insulin sliding scale as needed 09/25/2023: See above plan of care (5) Uterine fibroid: Code(s): D25.9 - Leiomyoma of uterus, unspecified Status: Chronic Assessment and Plan: 09/25/23: CT scan showing uterine fibroids She has a follow-up with Dr. Pritchard who is her EGG BREAKING MACHINE OPERATOR next Tuesday09/26/23: no change Time Spent With Patient Time with patient: 25 - 35 minutes Subjective Date/time seen: 09/26/23 09:10 Interval history: 09/25/23: This is a 53-year-old female who presented to the hospital on 09/24/2023 with complaints of abdominal pain. Workup in the hospital included an abdomen pelvis CT which showed hepatosplenomegaly had hepatic steatosis, cystitis with ascending infection on the left and left pyelonephritis. Initial labs showed a white blood cell count of 12.6, sodium 1-134, blood sugar 328, hemoglobin A1c 11.1. A UA was obtained and showed 2+ protein, 3+ glucose, 3+ urine blood, positive nitrate, 2+ leukocytes, greater than 100 urine wbc's, 11-20 urine RBCs, 3+ bacteria. Blood and urine cultures were obtained and are pending. Patient was given 1 L normal saline, Rocephin, Zofran and morphine while in the ED. On examination today patient is alert and oriented x3, sitting on side of bed. Patient denies any fever, chills, nausea, vomiting, diarrhea, abdominal pain, chest pain, shortness a breath. Labs today reveal white blood cell count that 7.9, sodium 136, blood sugar ranging 330-351, TSH was normal at 1.040. Patient does not recall any diagnosis of type 2 diabetes however her hemoglobin A1c this admission was 10.8.She will need to start on Lantus and Metformin upon discharge. 09/26/23: She denies any new complaints today. Labs today reveal a sodium of 134, blood sugar 295-322 otherwise normal. Blood cultures are still pending. Urine culture showed E coli on preliminary read. We will continue with Rocephin. I will go ahead and adjust her Lantus for this evening and start metformin. Review of Systems Review of Systems: All systems review
[2023-09-26 11:20] LABS: Glucose Point of Care 303 mg/dl (65-105)
[2023-09-26] MEDS: ACETAMINOPHEN 325 MG TABLET 650 MG PO (13:41)
[2023-09-26 13:42] VITALS: BMI 50.4
[2023-09-26] MEDS: metFORMIN HCL 500 MG TABLET 1000 MG PO ×2 (13:43→17:48)
[2023-09-26 14:00] VITALS: BP 141/65; PULSE 82; RESP 18; TEMP 37.4; O2SAT 96
[2023-09-26 16:33] LABS: Glucose Point of Care 287 mg/dl (65-105)
[2023-09-26 20:38] LABS: Glucose Point of Care 269 mg/dl (65-105)
[2023-09-26 20:43] VITALS: BP 144/65; PULSE 84; RESP 20; TEMP 36.4; O2SAT 97
[2023-09-26] MEDS: INSULIN GLARGINE (*BKC) 100 UNITS/ML 20 UNITS SUB-Q (21:24)
[2023-09-27 06:00] VITALS: BP 136/74; PULSE 76; RESP 20; TEMP 36.2; O2SAT 94
[2023-09-27 06:18] LABS: Basophils Percent Auto 0.5 % (0.2-1.2); Eosinophils Percent Auto 1.1 % (0-4.4); Hematocrit 40.5 % (37.0-47.0); Immature Granulocyte Absolute 0.02 K/mm3 (0.00-0.031); Immature Granulocyte Percent A 0.5 % (0-0.5); Lymphocytes Absolute Auto 0.75 K/mm3 (0.9-3.2); Lymphocytes Percent Auto 20.5 % (18.3-44.2); Mean Corpuscular HGB Conc 32.1 g/dl (32-36); Mean Corpuscular Hemoglobin 28.5 pg (26-34); Mean Corpuscular Volume 88.8 fl (80-100); Mean Platelet Volume 9.3 fl (7.4-10.4); Monocytes Absolute Auto 0.5 K/mm3 (0.1-0.6); Monocytes Percent Auto 12.6 % (2.6-8.5); Neutrophils Absolute Auto 2.4 K/mm3 (1.3-6.7); Neutrophils Percent Auto 64.8 % (45.5-73.1); Platelet Count Result 145 k/mm3 (150-375); Red Blood Count 4.56 M/mm3 (4.2-5.4); White Blood Count 3.7 K/mm3 (4.5-10.0)
[2023-09-27 06:29] LABS: Alanine Aminotransferase 26 U/L (6-35); Albumin Level 3.6 g/dL (3.5-5.1); Alkaline Phosphatase 37 U/L (38-126); Anion Gap 6 mmol/L (4-12); Aspartate Amino Transferase 28 U/L (14-36); Bilirubin,Total 0.6 mg/dL (0.2-1.3); Blood Urea Nitrogen 10 mg/dL (7-17); Calcium 8.8 mg/dL (8.4-10.2); Carbon Dioxide 25 mmol/L (22-30); Chloride 102 mmol/L (98-107); Estimated CRCL calculation 116 ml/min; Estimated Glomerular Filt Rate > 60; Glucose 251 mg/dL (65-110); Potassium 4.1 mmol/L (3.4-5.0); Sodium 133 mmol/L (137-145)
[2023-09-27 07:39] LABS: Glucose Point of Care 256 mg/dl (65-105)
[2023-09-27] MEDS: amLODIPine BESYLATE 5 MG TABLET PO (08:57)
[2023-09-27] MEDS: metFORMIN HCL 500 MG TABLET 1000 MG PO (08:57)
[2023-09-27] MEDS: CEFDINIR 300 MG CAPSULE PO (08:57)
[2023-09-27] MEDS: INSULIN ASPART (*BKC) 100 UNITS/ML SUB-Q ×2 (08:58→12:44)
--- NOTE | 2023-09-27 10:54 | PM.DS ---
DS: Admitting Diagnosis Discharge Date 09/27/23 Admitting Diagnosis UTI pyelonephritis acute hyperglycemia DS: Discharge Diagnosis Discharge Diagnosis (1) UTI (urinary tract infection): Code(s): N39.0 - Urinary tract infection, site not specified Status: Acute (2) Pyelonephritis: Code(s): N12 - Tubulo-interstitial nephritis, not specified as acute or chronic Status: Acute (3) Diabetes type 2, uncontrolled: Status: Acute (4) Acute hyperglycemia: Code(s): R73.9 - Hyperglycemia, unspecified Status: Acute (5) Uterine fibroid: Code(s): D25.9 - Leiomyoma of uterus, unspecified Status: Chronic DS: Summary Hospital Course Reason for hospitalization: UTI pyelonephritis acute hyperglycemia Hospital Course: 09/25/23: This is a 53-year-old female who presented to the hospital on 09/24/2023 with complaints of abdominal pain.? Workup in the hospital included an abdomen pelvis CT which showed hepatosplenomegaly had hepatic steatosis, cystitis with ascending infection on the left and left pyelonephritis.? Initial labs showed a white blood cell count of 12.6, sodium 1-134, blood sugar 328, hemoglobin A1c 11.1.? A UA was obtained and showed 2+ protein, 3+ glucose, 3+ urine blood, positive nitrate, 2+ leukocytes, greater than 100 urine wbc's, 11-20 urine RBCs, 3+ bacteria.? Blood and urine cultures were obtained and are pending.? Patient was given 1 L normal saline, Rocephin, Zofran and morphine while in the ED. On examination today patient is alert and oriented x3, sitting on side of bed.? Patient denies any fever, chills, nausea, vomiting, diarrhea, abdominal pain, chest pain, shortness a breath.? Labs today reveal white blood cell count that 7.9, sodium 136, blood sugar ranging 330-351, TSH was normal at 1.040.? Patient does not recall any diagnosis of type 2 diabetes however her hemoglobin A1c this admission was 10.8.She will need to start on Lantus and Metformin upon discharge. 09/26/23: She denies any new complaints today.? Labs today reveal a sodium of 134, blood sugar 295-322 otherwise normal.? Blood cultures are still pending.? Urine culture showed E coli on preliminary read.? We will continue with Rocephin.? I will go ahead and adjust her Lantus for this evening and start metformin. 09/27/23: she denies any new complaints today. Labs today showed platelet count of 145, sodium 133, blood sugars ranging 251-269, otherwise normal. Urine culture showing E coli on final read. Rocephin was stopped and she was started on cefdinir. She will finish another 7 days of this antibiotic. While here in the hospital she seen the staff development educator and was provided a glucometer. She will be going home on Lantus and metformin. Prescriptions were called to her pharmacy. She was also noted to be hypertensive and was started on amlodipine 5 mg daily. She is stable for discharge at this time. She will need to follow up with her primary care physician in 1 week. Final diagnosis: acute urinary tract infection, pyelonephritis, type 2 diabetes mellitus new onset, new onset hypertension Status at Discharge Cognitive/behavioral status at discharge: alert oriented x4 Functional status at discharge: independent ambulation Overall status at discharge: patient is progressing back to baseline Time Spent with Patient Time attestation: Total time spent providing and/or coordinating discharge services: Time spent: Greater than 30 minutes Exam Narrative: General: In no acute distress, well nourished Head: atraumatic, no encephalopathy Eyes: EOMI, PERRLA, sclera clear ENT: moist mucous membranes, nasal passages clear Neck: supple, no JVD, no adenopathy, trachea midline Cardiac: Normal S1 and S2. RRR, No murmur, gallops or friction rubs, peripheral pulses intact. Respiratory: Lungs clear to auscultation, no adventitious lung sounds, currently on RA Gastrointestinal: soft, non-distended, non-tender, normo
[2023-09-27 11:36] LABS: Glucose Point of Care 307 mg/dl (65-105)
--- NOTE | 2023-09-27 12:16 | PC.NURSE ---
Diabetic education nurse reviewed taking own accucheck and insulin administraton yesterday with pt. Pt verbalizes understanding. Feels comfortable performing at home post discharge.
[2023-09-27 14:00] VITALS: BP 149/70; PULSE 78; RESP 20; TEMP 36.3; O2SAT 97
== END 2023-09-27 16:05 | disposition home or self-care (01) ==
LOC: ANHED 21:26 → ANH3MEDSUR 22:28
PROVIDERS: Nurse Practitioner Acute Care; Admitting Provider Internal Medicine; Emergency Provider Emergency Medicine; Visit Provider Internal Medicine
DX: N39.0 Urinary tract infection, site not specified (principal); B96.20 Unspecified Escherichia coli [E. coli] as the cause of diseases classified elsewhere; N10 Acute pyelonephritis; I10 Essential (primary) hypertension; E11.65 Type 2 diabetes mellitus with hyperglycemia; D25.9 Leiomyoma of uterus, unspecified; R16.2 Hepatomegaly with splenomegaly, not elsewhere classified; K76.0 Fatty (change of) liver, not elsewhere classified; E66.01 Morbid (severe) obesity due to excess calories; Z68.43 Body mass index [BMI] 50.0-59.9, adult; Z79.2 Long term (current) use of antibiotics; Z79.891 Long term (current) use of opiate analgesic
CPT/HCPCS: 36415; 74177; 80053; 81001; 82948; 83036; 83690; 83735; 84443; 85025; 87040; 87077; 87086; 87088; 87186; 96361; 96365; 96375; 99285; A9270; G0378; J0696; J1815; J2270; J2405; J7030; Q9967

== ENCOUNTER 2023-11-16 00:36 | Day surgery (SDC) | payer OTHER, SELFPAY ==
[2023-11-07 15:13] VITALS: BMI 48.8
--- NOTE | 2023-11-07 15:20 | PC.NURSE ---
Report to the Outpatient Waiting Room, entrance under the green pavilion located off [facility], at time _0600_ on date _[id number]_. Planned Procedure Time: _0730_. Time changes happen often and if your time is changed the preop area will call you the afternoon before. - You and your visitor will be asked to self-screen and do not enter if you have any COVID symptoms. - A mask is optional within the hospital at this time. Patients may have clear liquids (water, carbonated beverages, clear teas, apple juice) until 3 hours prior to surgery with a maximum of 20 ounces. - No food from midnight until time of surgery - Infants may have breast milk until 4 hours before surgery, infant formula 6 hours prior to surgery. - Children will be allowed to drink immediately following surgery. If applicable, please bring a bottle or sippy cup to assist with drinking. Juice, water, soda, and popsicles are readily available. For infants on formula, please bring formula the day of surgery. Pacifiers are allowed. Take the following medications with a SIP of water the morning of surgery: ___Amlodipine DO NOT STOP ANY OF YOUR OTHER PRESCRIPTION MEDICATIONS PRIOR TO SURGERY ?EXCEPT THE FOLLOWING Medications to discontinue per physician ____None Date to take last dose Please no make-up, nail swazi, hairspray, perfume, deodorant, or body powder the day of surgery. No jewelry (including any body piercings) or valuables the day of surgery, leave them at home. Please take a shower or bath the night before, or the morning of, surgery with an antibacterial soap. Wear comfortable, loose fitting clothing. - Jewelry must be removed prior to entering the operating room. Rings and piercings that are not removed may be cut off. - The hospital will not accept responsibility for valuables. - Please leave all valuables, including medications, at home the day of surgery. If you are going home after surgery, a licensed lease purchase driver must drive you home. - NO public transportation without another adult if you receive anesthesia. - We recommend that an adult stay with you for 24 hours following discharge. - We also recommend that you do not drive, make important decision, drink alcoholic beverages, or take any drugs that were not prescribed by your health care provider for at least 24 hours after your discharge time. Follow any additional instructions given to you from your surgeon. If you or anyone in your household have experienced Covid symptoms in the past week, please notify your surgeon or the nurse liaison at the phone number below for possible testing. Telephone instructions given to _Fito__and asked if any additional questions and then verbalized understanding. Patient advised to call surgeon office or pre surgery nurse liaison [phone] if any additional questions.
[2023-11-16 05:54] VITALS: BP 151/81; PULSE 72; RESP 18; TEMP 36.4; O2SAT 98
[2023-11-16] MEDS: ACETAMINOPHEN 500 MG TABLET 1000 MG PO (06:11)
[2023-11-16 06:15] LABS: Glucose Point of Care 149 mg/dl (65-105)
[2023-11-16] MEDS: LACTATED RINGERS 1,000 ML 30 ML IV CONT (06:15)
--- NOTE | 2023-11-16 06:50 | WPDANESEPPF ---
Anes - Initial Pre Proc Eval Procedure: Operation Date: 11/16/23 07:30 Proposed Procedures p Hysteroscopy, Galina Endometrial Ablation, Biopsy of Endometrium and/or Polypectomy - Geo Pritchard MD Date/Time: 11/16/23 06:50 Surgeon: Geo Pritchard MD Pre Op Diagnosis: lesion of endometrium, menorrhagia Patient Data Age: 53 Gender: F Height: 1.75 m Weight: 146.4 kg Last Vital Signs Temp 97.6 F 11/16/23 05:54 Pulse 72 11/16/23 05:54 Resp 18 11/16/23 05:54 BP 151/81 H 11/16/23 05:54 Pulse Ox 98 11/16/23 05:54 O2 Del Method Room Air 11/16/23 05:54 Allergies Allergy/AdvReac Type Severity Reaction Status Date / Time No Known Allergies Allergy Verified 11/16/23 06:25 Home Medications Medication Instructions Recorded Confirmed Type amlodipine 5 mg tablet 5 mg PO DAILY #30 tabs 09/27/23 11/16/23 Rx blood sugar diagnostic #50 ea 09/27/23 Rx lancets #200 ea 09/27/23 Rx metformin 1,000 mg tablet 1,000 mg PO BID Type II DM #60 tabs 09/27/23 11/16/23 Rx pen needle, diabetic 32 gauge x #100 ea 09/27/23 Rx 5/32 (BD Isabella 2nd Gen Pen Needle) Laboratory Tests 11/16/23 06:12 POC Capillary Glucose 149 H mg/dl (65-105) Patient hx anesthesia problems: none Family hx anesthesia problems: none Results Review: All pre-operative results and documents have been reviewed as part of the pre-operative evaluation. [facility], LAT[facility] Past Medical History Medical History Diabetes type 2, uncontrolled Uterine fibroid Family History Family History Other No acute medical problems Social History Social History Smoking status: Never smoker Alcohol intake: never Substance use: never Substance use type: does not use Do You Feel Safe in your Home?: Yes Lack of Transportation: No Lack of Food: Never True Current Housing: I Have Housing Concerned About Future Housing: No Difficulty Paying Gas/Electric Bills: No Difficulty Paying for Meds: No Currently Unemployed: No Education: High School Diploma/GED Difficulty w/ Childcare or Family Care: No Living arrangements: with family Spiritual care concerns: No Anes - Eval Final PreProcedure Day of Procedure 11/16/23 06:50 Patient weight: morbidly obese Heart: regular rate and rhythm Lungs: clear to auscultation Airway: Mallampati scale and special considerations (Small chips noted to upper incisors, lower R cap. ) Neurological: alert and oriented Last oral intake: >/= 8 hours ASA classification: III Emergent: no Anesthetic plan: proceed Anesthesia type and monitoring: general GIVS and standard monitoring Results Review: All pre-operative results and documents have been reviewed as part of the pre-operative evaluation. HTN, DM, fsbs 149. Pt active as maintenance assistant, on her feet, walks neighborhood, no cp or sob. Informed Consent: The patient's anesthetic plan and its attendant risks and benefits were discussed with the patient/family/POA. Questions were solicited and answers provided to the satisfaction of the patient/family/POA.
--- NOTE | 2023-11-16 07:19 | WPDHPUPDATE1 ---
History and Physical Update Update Date/Time: 11/16/23 07:19 History and Physical has been reviewed, including an updated exam of the patient. There are NO changes in the patient's condition. Risks, benefits, and alternatives have been discussed and questions answered. Patient agrees to proceed with procedure.
--- NOTE | 2023-11-16 07:25 | PM.IMHP ---
H&P: HPI History of Present Illness Date/Time: 11/16/23 07:25 Chief Complaint: Abnormal uterine bleeding Narrative: 53-year-old female with longstanding abnormal uterine bleeding with endometrial finding on ultrasound. Possible polyp. We have agreed to perform hysteroscopy D and C with possible polypectomy and endometrial ablation. She understands procedure. Has been explained to her in detail she understands the risk. She understands injuries may occur that result in hospitalization, more surgery, and severe illness. She understands risk of hemorrhage and infection. She under denies any nausea, vomiting, fever, chills. She denies any chest pain shortness of breath Review of Systems Review of Systems: All systems reviewed & are unremarkable except as noted in HPI and below Constitutional: Constitutional: Denies chills, Denies fatigue, Denies fever(s) and Denies weakness Eyes: Eyes: Denies blurry vision, Denies change in vision, Denies loss of peripheral vision, Denies loss of vision, Denies other visual disturbances and Denies eye pain ENT: Denies vertigo, Denies dizziness, Denies hearing loss, Denies mouth pain, Denies nasal obstruction, Denies neck mass and Denies neck pain Cardiovascular: Cardiovascular: Denies chest pain, Denies diaphoresis, Denies syncope, Denies leg edema and Denies dyspnea Respiratory: Respiratory: Denies chest congestion, Denies cough, Denies hemoptysis, Denies dyspnea and Denies wheezing Gastrointestinal: Gastrointestinal: Denies abdominal pain, Denies constipation, Denies diarrhea, Denies nausea and Denies vomiting Genitourinary: Genitourinary: Denies hematuria, Denies change in libido, Denies nocturia, Denies genital lesions, Denies flank pain and Denies urinary urgency Musculoskeletal: Musculoskeletal: Denies abnormal gait, Denies back pain, Denies myalgias, Denies arthralgias, Denies joint swelling, Denies muscle weakness and Denies neck pain Integumentary/Breasts: Skin/Breast: Denies swelling, Denies breast pain, Denies breast mass, Denies dry skin, Denies nipple discharge, Denies unusual bruising and Denies jaundice Neurologic: Denies Neuro-related abnormal movements, Denies Abnormal speech present, Denies abnormal gait, Denies behavioral changes, Denies confusion, Denies vertigo, Denies dizziness, Denies syncope, Denies loss of vision, Denies memory loss, Denies convulsions and Denies weakness Psychiatric: Psychiatric: Denies abnormal sleep pattern, Denies behavioral changes, Denies change in libido, Denies confusion, Denies depression, Denies anhedonia and Denies memory loss Endocrine: Endocrine: Reports no additional endocrine complaints, Denies change in libido and Denies fatigue Hematologic/Lymphatic: Hematologic/Lymphatic: Reports no additional hematologic/lymphatic complaints Allergic/Immunologic: Allergic/Immunologic: Reports no additional allergic/immunologic complaints and Denies wheezing PMFSH Past Medical History Medical History Diabetes type 2, uncontrolled Uterine fibroid Family History Family History Other No acute medical problems Social History Social History Smoking status: Never smoker Alcohol intake: never Substance use: never Substance use type: does not use Do You Feel Safe in your Home?: Yes Lack of Transportation: No Lack of Food: Never True Current Housing: I Have Housing Concerned About Future Housing: No Difficulty Paying Gas/Electric Bills: No Difficulty Paying for Meds: No Currently Unemployed: No Education: High School Diploma/GED Difficulty w/ Childcare or Family Care: No Living arrangements: with family Spiritual care concerns: No Meds Home Medications and Allergies Home Medications Medication Instructions Recorded Confirmed Typ
[2023-11-16] MEDS: LIDOCAINE HCL 1% LOCAL INJ 20 ML VIAL 10 ML INFILTRATE (07:56)
[2023-11-16 08:15] VITALS: BP 127/71; PULSE 69; RESP 12; O2SAT 94
[2023-11-16 08:21] LABS: Glucose Point of Care 135 mg/dl (65-105)
--- NOTE | 2023-11-16 08:22 | W.PM.PROC2 ---
Procedure Note - Detailed Date of Procedure 11/16/23 Pre-op Diagnosis lesion of endometrium, menorrhagia Post-op Diagnosis Same Procedure Performed endometrial ablation with hysteroscopy d&c Surgeon Geo Pritchard MD Anesthesia MAC Indications Severe menorrhagia Findings Normal vulva vagina and cervix. Normal endometrium with 1.5 cm endometrial polyp, anterior wall . He came out with the endometrial curettage Description of Procedure The patient was taken to the operating room. She was prepped and draped in the dorsal lithotomy position after induction of mac anesthesia. A speculum was placed in the vagina. Cervix grasped with a tenaculum. The cervix was dilated to about 1 cm. The hysteroscope was inserted. The above findings were noted. Endometrial curettage was performed with a medium-size curette. All surfaces of the endometrium were affected by the curettage. The specimens were collected and sent to pathology. Measurements were taken of the uterus and cervix. The uterine length was then entered into the hand piece of the Galina device. The device was inserted into the intrauterine cavity. The array of the device was expanded. The balloon cuff was inflated. A good seal was achieved. The energy and safety cycles were initiated and completed. The array was collapsed and the instrument was withdrawn after deflating the balloon cuff. Hysteroscope was reinserted. Above findings were noted. The hysteroscope was removed. The patient tolerated the procedure well. The speculum and tenaculum were removed. She was taken to recovery in stable condition. Sponge lap and needle counts were correct x2. Estimated Blood Loss 15 Pathology Yes Complications No immediate complications Condition Stable Disposition Same day
[2023-11-16 08:40] VITALS: BP 159/81; PULSE 60; RESP 12; O2SAT 94
[2023-11-16 09:10] VITALS: BP 159/79; PULSE 57; RESP 12
== END 2023-11-16 09:16 | disposition home or self-care (01) ==
PROVIDERS: PCP Physician Assistant; Visit Provider Obstetrics & Gynecology
PROC: 0U5B8ZZ Destruction of Endometrium, Via Natural or Artificial Opening Endoscopic (ICD-10-PCS; CPT 58563; principal; 2023-11-16 07:30)
DX: N92.0 Excessive and frequent menstruation with regular cycle (principal); N84.0 Polyp of corpus uteri; E11.9 Type 2 diabetes mellitus without complications; Z79.85 Long-term (current) use of injectable non-insulin antidiabetic drugs; E66.01 Morbid (severe) obesity due to excess calories; Z68.42 Body mass index [BMI] 45.0-49.9, adult
CPT/HCPCS: 58563; 82948; 88305; A9270; J2250; J2405; J2704; J3010; J7120

== ENCOUNTER 2024-01-20 15:19 | Emergency (ER) | payer OTHER, SELFPAY ==
[2024-01-20 15:23] VITALS: BP 150/84; PULSE 72; RESP 14; TEMP 36.1; O2SAT 98
--- NOTE | 2024-01-20 15:30 | ED.EYEPROB ---
HPI - Eye Problem General Chief complaint: Eye Problems Stated complaint: Left Eye Irritation Time Seen by Provider: 01/20/24 15:32 Source: patient, RN notes reviewed and old records reviewed Mode of arrival: ambulatory Limitations: no limitations History of Present Illness HPI Narrative: 53-year-old female presents to the [facility] with complaints of left lower eyelid irritation, mild swelling. Denies any eye trauma. Denies blurry vision or change in vision. Mild inflammation noted to the lower lid without increased erythema Onset (ago): day(s) (1) Treatments Prior to Arrival: irrigated eye Related Data Home Medications Medication Instructions Recorded Confirmed progesterone micronized 200 mg mg 01/20/24 capsule Allergies Allergy/AdvReac Type Severity Reaction Status Date / Time No Known Allergies Allergy Verified 01/20/24 15:22 Review of Systems Review of Systems: All systems reviewed & are unremarkable except as noted in HPI and below Constitutional: Constitutional: Reports no additional constitutional complaints Eyes: Eyes: Reports as per HPI, Denies blurry vision, Denies exophthalmos, Denies change in vision, Denies decreased night vision, Denies eye discharge, Reports irritation (Left), Denies loss of vision, Denies eye pain and Denies tunnel vision ENT: Reports system reviewed and no additional complaints, except as documented Cardiovascular: Cardiovascular: Reports no additional cardiovascular complaints, Denies chest pain and Denies dyspnea Respiratory: Respiratory: Reports no additional respiratory complaints, Denies chest congestion, Denies cough and Denies dyspnea Gastrointestinal: Gastrointestinal: Reports no additional gastrointestinal complaints, Denies abdominal pain, Denies nausea and Denies vomiting Musculoskeletal: Musculoskeletal: Reports no additional musculoskeletal complaints Integumentary/Breasts: Skin/Breast: Reports system reviewed and no additional complaints, except as docu Neurologic: Reports system reviewed and no additional complaints, except as documented Psychiatric: Psychiatric: Reports no additional psychiatric complaints Allergic/Immunologic: Allergic/Immunologic: Reports no additional allergic/immunologic complaints [facility] Past Medical History Medical History Diabetes type 2, uncontrolled Uterine fibroid Family History Family History Other No acute medical problems Social History Social History Smoking status: Never smoker Alcohol intake: never Substance use: never Substance use type: does not use Do You Feel Safe in your Home?: Yes Lack of Transportation: No Lack of Food: Never True Current Housing: I Have Housing Concerned About Future Housing: No Difficulty Paying Gas/Electric Bills: No Difficulty Paying for Meds: No Currently Unemployed: No Education: High School Diploma/GED Difficulty w/ Childcare or Family Care: No Living arrangements: with family Spiritual care concerns: No Comments At the time of my signature, I reviewed and agree with the nursing past medical, surgical, social, and family history. There is no relevant family history pertinent to the patient complaint. Exam Const: General: cooperative, healthy appearing, comfortable, no acute distress, well developed, alert and well nourished Nutritional Appearance: well nourished Orientation/consciousness: patient oriented x3 Limitations: no limitations HENMT: Head: normal to inspection Ears: hearing grossly normal bilaterally and external ears normal Face/Nose/Sinus: Normal external nose present, Normal nares present, Normal nasal mucous membranes and turbinates present, normal facial exam and face symmetric Face and sinus: normal facial exam and face symmetric Eyes: General: appearance normal
[2024-01-20 15:31] VITALS: BP 150/84; PULSE 72; RESP 14; TEMP 36.1; O2SAT 98
== END 2024-01-20 15:45 | disposition home or self-care (01) ==
PROVIDERS: Emergency Provider Nurse Practitioner; PCP Physician Assistant
DX: H00.015 Hordeolum externum left lower eyelid (principal); E11.9 Type 2 diabetes mellitus without complications
CPT/HCPCS: 99213; G0463

== ENCOUNTER 2024-12-08 15:27 | Emergency (ER) | payer OTHER, SELFPAY ==
--- OUTSIDE RECORDS SUMMARY | 2024-12-08 15:29 | XMS_ITS ---
Author Organization Unknown Plan of Treatment Description Planned Activity Planned Timing [facility] is a provider organization who partners directly with [employer] and provides integrated primary care, behavioral health, and social secretary for an attributed population Letter encounter to patientTelephone encounter Nov 29, 2024Jul 2024 Patient Care team information Name Category Status Period Participants - - Proposed period not known -
--- OUTSIDE RECORDS SUMMARY | 2024-12-08 15:29 | XMS_ITS | Data Portability ---
Author Organization [facility] [place] Address [address] [place] [address] [place] [address] Care Team Providers Care Strap Maker Name Role Phone BERNADETTE CHASE Primary Care Provider Assessment No assessment recorded. Plan of Treatment Reminders Order Date Submit Date Provider Last Modified By Organization Details Last Modified Time Details Appointments None recorded. Lab None recorded. Referral None recorded. Procedures None recorded. Surgeries hysteroscop y, surgical, with biopsy of endometrium and/or polypectomy (SURG) [address], [facility], [address], 4 10:05:52 hysteroscop y, with endometrial ablation (SURG) 2023 024 [facility], [facility] [address], [address], 4 09:32:04 Imaging US, transvagina l 2023 024 [email or web address] [place], [address], [place], [address], 4 20:03:55 Medication Orders progesteron e micronized 200 mg capsule 2023 024 [id number], [address], [place], [place], [id number], 4 13:03:52 progesteron e micronized 200 mg capsule 2022 023 [id number], [address], [place], [place], [id number], 15:34:22 Patient TargetsNo targets recorded. Patient InstructionsNo instructions recorded. Reason for Referral None Reported. Results Created Date Observation Date Name Description Value Unit Range Abnormal Flag Note LastModifiedBy Organization Detail LastModifiedTime 08/07/1908/06/2022 CT, abdom en + pelvi s, w/ contr ast No observ ation record ed. [email or web address] [facility] [address], [place], [address], 08/12/2022 17:19:10 09/08/19 24 09/08/2023 US, trans vagin al No observ ation record ed. [email or web address] [place] [address], [place], [address], 09/08/2023 14:45:07 09/08/19 24 09/08/2023 US, trans vagin al No observ ation record ed. [email or web address] [facility] [address], [place], [address], 09/08/2023 21:39:18 Result Notes None recorded. Procedures Surgical History Date Name Laterality Status Provider Name and Address Organization Details Recorded Time 11/16/19 24 HYSTEROSCOPY, WITH ENDOMETRIAL ABLATION (SURG) completed Saroj Morales [facility] 11/16/2023 12:07:13 07/06/19 23 Endometrial Biopsy completed Nida Hernandes DAVID- [address], [place], [address], [facility] 07/08/2022 14:59:21 07/06/19 23 Date of Last Pap Smear completed Orly Michael [facility] 09/02/2023 12:20:32 Tubal Ligation completed Ashlie Dominguez [facility] 09/03/2022 14:47:40 Imaging Results None recorded. Procedure Notes None recorded. Medical Equipment None Reported. Allergies No known drug allergies Medications Name Sig Start Date Stop Date Status Note LastModified by Organization Details LastModified Time cyclobenzap rine 10 mg tablet TAKE 1 TABLET BY MOUTH EVERY 8 HOURS FOR 7 DAYS NEEDED FOR MUSCLE SPASM 07/06 completed Not Available Not Available Not Available amoxicillin 500 mg capsule TAKE 1 CAPSULE BY MOUTH EVERY 12 HOURS FOR 10 DAYS 09/01 completed Not Available Not Available Not Available ibuprofen 800 mg tablet TAKE 1 TABLET BY MOUTH THREE TIMES DAILY NEEDED FOR PAIN 07/06 completed Not Available Not Available Not Available tizanidine 4 mg tablet TAKE 1 TABLET BY MOUTH EVERY 8 HOURS NEEDED FOR MUSCLE SPASMS 09/01 completed Not Available Not Available Not Available meloxicam 15 mg tablet TAKE 1 TABLET BY MOUTH DIRECTED WITH FOOD FOR PAIN AND INFLAMMAT ION 07/06 completed Not Available Not Available Not Available amlodipine 5 mg tablet TAKE 1 TABLET BY MOUTH EVERY DAY active Not Available Not Available No t Available tramadol 50 mg tablet TAKE 1 TABLET BY MOUTH EVERY 6 HOURS FOR PAIN. TAKE WITH FOOD. IF PAIN IS NOT RELIEVED BY MELOXICAM ALONE ELANA 500 TO 650 MG OF TYLENOL WITH EACH 07/06 completed Not Available Not Available Not Available amoxicillin 875 mg tablet TAKE 1 TABLET BY MOUTH EVERY 12 HOURS FOR 10 DAYS 07/06 completed Not Available Not Available Not Available diazepam 2 mg tablet TAKE 1 TABLET BY MOUTH NIGHTLY NEEDED TO RELAX MUSCLES AND HELP WITH SLEEP 07/06 completed Not Available Not Available Not Available metformin 1,000 mg tablet TAKE 1 TABLET BY MOUTH TWICE DAILY active Not Available Not Available No t Available progesteron e micronized 200 mg capsule TAKE 1 CAPSULE BY MOUTH EVERY DAY FOR 12 DAYS active Not Available Not Available No t Available cefdinir 300 mg capsule TAKE 1 CAPSULE BY MOUTH EVERY 12 HOURS 11/24 completed Not Available Not Available Not Available naproxen 500 mg tablet TAKE 1 TABLET BY MOUTH TWICE DAILY FOR 7 DAYS NEEDED FOR PAIN 07/06 completed Not Available Not Available Not Available amoxicillin 875 mg-potassiu m clavulanate 125 mg tablet TAKE 1 TABLET BY MOUTH TWICE DAILY FOR 10 DAYS 07/06 completed Not Available Not Available Not Available One-A-Day Womens Formula 11/24 completed Not Available Not Available Not Available calcium 11/24 completed Not Available Not Available Not Available Fish Oil 11/24 completed Not Available Not Available Not Available Lantus Solostar U-100 Insulin 100 unit/mL (3 mL) subcutaneou s pen INJECT 36 UNTIS UNDER THE SKIN AT BEDTIME 11/24 completed Not Available Not Available Not Available OneTouch Verio test strips TEST TWICE DAILY 11/24 completed Not Available Not Available Not Available 1 mg-20 mcg (24)/75 mg (4) tablet TAKE 1 TABLET BY MOUTH EVERY DAY 09/01 completed Not Available Not Available Not Available TRUEplus Pen Needle 32 gauge x /32 USE DIRECTED 11/24 completed Not Available Not Available Not Available OneTouch Delica Plus Lancet 33 gauge TEST TWICE DAILY 11/24 completed Not Available Not Available Not Available Vitals Date Recorded Body height Body mass index (BMI) Body weight Systolic And Diastolic Provider Name and Address Organization Details Last Updated DateTime 09/02/2023 175.26 cm 50.8 kg/m2 645895.78 g 147/88 mm[Hg] Orly Michael [facility] 09/02/2023 12:19:26 Date Recorded Body height Body mass index (BMI) Body weight Systolic And Diastolic Provider Name and Address Organization Details Last Updated DateTime 09/03/2022 175.26 cm 53 kg/m2 502224.66 g 149/83 mm[Hg] Ashlie Dominguez [facility] 09/03/2022 14:47:08 Date Recorded Body height Body mass index (BMI) Body weight Systolic And Diastolic Provider Name and Address Organization Details Last Updated DateTime 09/30/2023 175.26 cm 49 kg/m2 673919.67 g 133/80 mm[Hg] Rosie Mckinney [facility] 09/30/2023 12:37:05 Date Recorded Body height Body mass index (BMI) Body weight Systolic And Diastolic Provider Name and Address Organization Details Last Updated DateTime 11/25/2023 175.26 cm 47.7 kg/m2 417674.34 g 134/82 mm[Hg] Orly Michael [facility] 11/25/2023 16:04:32 Social History Question Answer Notes LastModified by Organizat ion Details LastModified Time Tobacco Smoking Status Never Smoker Thu Pham elizabeth, [facility] 07/06/2022 16:01:43 Are You Blind Or Do You Have Difficulty Seeing? No Information n ot available 07/06/2022 What Is Your Level Of Caffeine Consumption? Moderate Information not available 07/06/2022 How Much Tobacco Do You Chew? None Information not available 07/06/2022 In The 14 Days Before Symptom Onset, Have You Had Close Contact With A Laboratory-confirm ed COVID-19 While That Case Was Ill? No Information n ot available 07/06/2022 In The 14 Days Before Symptom Onset, Have You Had Close Contact With A Person Who Is Under Investigation For COVID-19 While That Person Was Ill? No Information not available 07/06/2022 Have You Been To An Area Known To Be High Risk For COVID-19? No Information not available 07/06/2022 Are You Deaf Or Do You Have Serious Difficulty Hearing? No Information not available 07/06/2022 What Type Of Diet Are You Following? REGULAR Information n ot available 07/06/2022 What Is The Highest Grade Or Level Of School You Have Completed Or The Highest Degree You Have Received? [id number] Information not available 07/06/2022 Are There Any Guns Present In Your Home? No Information not available 07/06/2022 Do You Use Protection During Sex? No Information not available 07/06/2022 Do You Use Your Seat Belt Or Car Seat Routinely? Yes Information not available 07/06/2022 Do You Have Smoke And Carbon Monoxide Detectors In Your Home? Yes Information not available 07/06/2022 How Much Tobacco Do You Smoke? No Information not available 07/06/2022 Do You Use Sunscreen Routinely? No Information not available 07/06/2022 Have You Used IV Drugs? No Information not available 07/06/2022 Do You Have Difficulty Walking Or Climbing Stairs? No Information not available 07/06/2022 Sex: Unknown Functional Status Question Answer Note LastModified by Organizat ion Details LastModified Time Do you use any illicit or recreational drugs? No Information not available 07/06/2022 What is your level of alcohol consumption? None Information not available 07/06/2022 Are you able to walk? YESWOREST Information not available 07/06/2022 Are you able to care for yourself? 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 Information not available 07/06/2022 Do you have difficulty dressing or bathing? No Information not available 07/06/2022 What is your exercise level? None Information not available 07/06/2022 Mental Status Question Answer Note LastModified by Organization D etails LastModified Time Do you feel stressed (tense, restless, nervous, or anxious, or unable to sleep at night)? [id number] Information not available 07/06/2022 Family History Relationship Description Onset Age of this Age Resolved Age Notes LastModified by Organization Details LastModified Time Father No current problems or disability Not available 07/06 16:01:32 Mother No current problems or disability Not available 07/06 16:01:33 Medical History Condition Response Allergies (Food, seasonal, environmental ) N Other N Drug/Latex Allergies/Reactions N Blood Transfusion N Breast Cancer N Dermatologic Disorders N Lung Disease N Defects or Inherited Disease N Breast Problem N Gestational Diabetes N Hematologic disorders N Anesthesia Complications N History of STI N Deep Vein Thrombosis N Polycystic ovary syndrome N Anxiety Disorder N Autoimmune disease N Arthritis N Polyps N Infertility N Acid Reflux (GERD) N History of abnormal pap N Cancer N Varicosities N Stroke N Neurologic/Epilepsy N Endometriosis N High Cholesterol N Fibromyalgia N Headaches N Kidney Disease N Heart Problems N Thyroid Problems N Kidney or Bladder Problems N GI Problems N Eating Disorder N Anemia N Art (IVF or FET) N Psychiatric Illness N Ovarian Cancer N Diabetes N Pulmonary (TB, Asthma) N Hepatitis/Liver Disease N No Past Medical History N Eczema N Urinary Tract Infection N Abuse/Domestic Violence N Asthma N Trauma/Violence N Depression/ depression N Heart Disease N Pre-Eclampsia N Hypertension N Osteoporosis N Thrombophilias N Gynecological History Statement/Question Response Abnormal Pap N Date of Last Mammogram Flow Heavy Date of LMP 09/09/2023 On BCP's at Conception? N Was last menstrual period normal N STIs/STDs N HPV Vaccine N Duration of Flow (days) 45 Current Control Method Tubal Ligat ion Age at First Child 23 Are cycles usually normal N Sexually Active? No Menses Monthly Y Age of first menstrual cycle 12 Date of Last Pap Smear 07/06/2022 Sexual Problems? N LMP Definite N Obstetrics History GPAL:G 4 P 4 0 0 4 Type Value Full Term 4 Living 4 Total 4 Past Encounters Encounter ID Performer Location Encounter Start Date Encounter Closed Date Diagnosis/Indication Diagnosis SNOMED-CT Code Diagnosis ICD10 Code Diagnosis Note [id number] Nida Hernandes [facility] [address] [address] 07/06/2022 15:38:52 07/08/2022 16:56:39 Abnormal uterine bleeding [id number] 9100 N93.9 R19.00 R10.2 Today we agreed to do pap smear & EMBx.She will need further imaging as US report indicated. Can attempt to get MRI approved but might have to start with CT Scan of abd/pelvis depending on insurance approval.A greed to MD consult as possible uterine fibroid 3.5cm (35mm) and thickened endo lining 3.7cm (37mm). Likely surgical options will be required & will need to be discussed with MD. Routine testing sent: STD screen, mammo orderedAdv ised to go for yearly updated visit PCPStay on until otherwise indicated as this is controllin g AUB at this time. Labs updated l await MRI or other imaging to be completed & then get her scheduled with Dr. Pritchard or if another specialist is required.C all if unable to get in for imaging within 7-10 business days. Time spent in visit is a total of 30 mins with at least 50% of visit consisting of counseling and review of plan of care not including time spent on procedure. Screening procedure 2012 5006 Z13.9 [id number] Geo Pritchard MD [place] [address] [address] 09/03/2022 14:13:17 09/03/2022 15:55:22 Abnormal uterine bleeding [id number] 9100 N93.9 52-year-ol d female with profound menorrhagi a. 6-8 months of irregular bleeding. Had ovulatory cycles her whole life and then anovulator y bleeding for the last 6-8 months. She has got an endometria l biopsy this normal and fairly normal pelvic ultrasound . We talked about treatment options. I counseled her for 40 minutes on treatment options, the menstrual cycle, anovulator y bleeding, endometria l cancer risk, various treatment options -risks, benefits, alternativ es. Agreed to discontinu e combined oral contracept lulu and start 200 mg of micronized progestero ne. Spent over 40 minutes face-to-fa ce. More than 50% was counseling . Talked about hysterecto my, talked about D and C, talked about risks of hysterecto my and surgery. Talked about benefits of D&C. [id number] Geo Pritchard MD [place] [address] [address] 09/02/2023 12:04:34 09/02/2023 13:03:18 Abnormal uterine bleeding [id number] 9100 N93.9 this patient is a 53-year-ol d female who presents for follow-up on abnormal uterine bleeding and medical treatment. Patient had a very profoundly thick endometriu m on her last ultrasound a year ago. She is continued to bleed intermitte ntly. The bleeding is better but she continues to bleed after a year of daily progestero ne, 200 mg. We will repeat ultrasound . Unusual that she continues to bleed. She will return after the ultrasound to discuss the results. We talked about cyclic progestero ne. But let us re-evaluat e the endometria l lining and the abnormal uterine bleeding and consider what might be going on inside the uterus. [id number] Geo Pritchard MD [place] [address] [address] 09/08/2023 11:41:11 09/08/2023 12:32:02 Abnormal uterine bleeding [id number] 9100 N93.9 this patient is a 53-year-ol d female who presents for follow-up on abnormal uterine bleeding and medical treatment. Patient had a very profoundly thick endometriu m on her last ultrasound a year ago. She is continued to bleed intermitte ntly. The bleeding is better but she continues to bleed after a year of daily progestero ne, 200 mg. We will repeat ultrasound . Unusual that she continues to bleed. She will return after the ultrasound to discuss the results. We talked about cyclic progestero ne. But let us re-evaluat e the endometria l lining and the abnormal uterine bleeding and consider what might be going on inside the uterus. [id number] Geo Pritchard MD [place] [address] [address] 09/30/2023 11:56:37 09/30/2023 14:30:02 Abnormal uterine bleeding [id number] 9100 N93.9 53-year-ol d female with longstandi ng heavy bleeding this been treated with progestero ne. She continues to bleed. Repeat ultrasound today reveals a endometria l lesion that was previously obscured by thickening . We discussed the recommenda tions for a symptomati c polyp. We discussed treatment for her long-term bleeding. We agreed that the polyp had to be removed and we also agreed to perform endometria l ablation to possibly cure her bleeding. We spent 40 minutes face-to-fa ce. More than 50% was counseling . We made a decision to perform surgery. I described the procedure to the patient in detail. Lesion of endometrium 92 [id number] 9101 N85.9 Menorrhagia [id number] N9 2.0 [id number] Geo Pritchard MD [place] [address] [address] 11/25/2023 15:40:07 11/25/2023 17:06:26 Endometrial polyp [id number] N84.0 patient presents for postop follow-up after resection of endometria l polyp and endometria l ablation. She is recovering normally. She has Watery vaginal discharge. She denies any foul-smell ing discharge. She denies any nausea, vomiting, fever, chills. Health Concerns Section Related Observation LastModified by Organization Critical access hospital LastModified Time None Recorded Concern Status LastModified by Organization Details LastModified Time None Recorded Advance Directives Directive None Recorded Payers Insurance Date Sequence Insurance Name Policy Number Policy Decker Covered Member ID Decker Member ID Guarantor Name 11/29/2023 1 [facility] - DOS ON OR AFTER 20 (MEDICAID REPLACEMENT - HMO) Aryaelvin Finn [id number] Fito Finn Notes Date Note Type Note Provider Name and Address Organization Details Recorded Time 09/03/2022 text/html 52-year-old fema le with profound menorrhagia. 6-8 months of irregular bleeding. Had ovulatory cycles her whole life and then anovulatory bleeding for the last 6-8 months. She has got an endometrial biopsy this normal and fairly normal pelvic ultrasound. We talked about treatment options. I counseled her for 40 minutes on treatment options, the menstrual cycle, anovulatory bleeding, endometrial cancer risk, various treatment options -risks, benefits, alternatives. Agreed to discontinue combined oral contraceptives and start 200 mg of micronized progesterone. Spent over 40 minutes [id number]. More than 50% was counseling. Talked about hysterectomy, talked about D and C, talked about risks of hysterectomy and surgery. Talked about benefits of D&C. Geo Pritchard MD [address], [place], [address], [facility] 09/03/2022 15:48:34 09/02/2023 text/html this patient is a 53-year-old female who presents for follow-up on abnormal uterine bleeding and medical treatment. Patient had a very profoundly thick endometrium on her last ultrasound a year ago. She is continued to bleed intermittently. The bleeding is better but she continues to bleed after a year of daily progesterone, 200 mg. We will repeat ultrasound. Unusual that she continues to bleed. She will return after the ultrasound to discuss the results. We talked about cyclic progesterone. But let us re-evaluate the endometrial lining and the abnormal uterine bleeding and consider what might be going on inside the uterus. Geo Pritchard MD [address], [place], [address], [facility] 09/02/2023 12:56:26 09/30/2023 text/html 53-year-old femdre arevalo with longstanding heavy bleeding this been treated with progesterone. She continues to bleed. Repeat ultrasound today reveals a endometrial lesion that was previously obscured by thickening. We discussed the recommendations for a symptomatic polyp. We discussed treatment for her long-term bleeding. We agreed that the polyp had to be removed and we also agreed to perform endometrial ablation to possibly cure her bleeding. We spent 40 minutes [id number]. More than 50% was counseling. We made a decision to perform surgery. I described the procedure to the patient in detail. The patient understands the procedure. The procedure was described to the patient in great detail. the patient also understands the risks. The risks were also explained in detail. She understands that injuries May occur during surgery. She understands these injuries can result in hospitalization, more surgery, and severe illness. She understands there is risk of hemorrhage and infection. Geo Pritchard MD [address], [place], [address], [facility] 09/30/2023 13:05:38 11/25/2023 text/html patient presents for postop follow-up after endometrial ablation. She is recovering normally. She has Watery vaginal discharge. She denies any foul-smelling discharge. She denies any nausea, vomiting, fever, chills. Geo Pritchard MD [address], [place], [address], [facility] 11/25/2023 16:37:32 OBGyn Episode Ob Episode Information Episode Created Date Number of Fetuses Patient Bloodtype Patient rh Status Prepregnancy Weight lbs Domestic Partner Domestic Partner Phone Father Name Varnish Filterer Status 07/06/19 23 1 CLOSED Fetus Data First Name Last Name Admitted to NICU Weight (g) Sex Living Outcome Pediatric Complications Fetus ID Race Codes Race Delivery Type 3288.54 2 M Full Term [id number] Vaginal Delivery Gilbert Calculation Initial Gilbert Date Initial Exam Date Initial Exam Provider Initial Ultrasound Date Last Menstrual Period Date Ultra Sound Weeks Gestation 0 Eighteen To Twenty Week Gilbert Update Ultra Sound Date Fundal Height At Umbil Quickening Date Ultra Sound Latest Weeks Gestation Final Gilbert Confirmed By Final Gilbert Confirmed Date Final Gilbert Date Ultra Sound Latest Days Gestation 0 0 Menstrual History Last Menstrual Date Menses Monthly On Bcp Conception Prior Menses Frequency Hcg Plus Date Menarche Onset Age Delivery Information Delivery Date Delivery Type Labor Anesthesia Weeks Gestation Incision Type Labor Labor Length Hrs Delivered By Post Complications Tubal Sterilization Discharge Date Comments 4 Discharge Information Feeding Method Contraceptive Method Maternal HG B and HCT Levels Ob Episode Information Episode Created Date Number of Fetuses Patient Bloodtype Patient rh Status Prepregnancy Weight lbs Domestic Partner Domestic Partner Phone Father Name Varnish Filterer Status 07/06/19 1 CLOSED Fetus Data First Name Last Name Admitted to NICU Weight (g) Sex Living Outcome Pediatric Complications Fetus ID Race Codes Race Delivery Type 3742.13 4 M Full Term [id number] Vaginal Delivery Gilbert Calculation Initial Gilbert Date Initial Exam Date Initial Exam Provider Initial Ultrasound Date Last Menstrual Period Date Ultra Sound Weeks Gestation 0 Eighteen To Twenty Week Gilbert Update Ultra Sound Date Fundal Height At Umbil Quickening Date Ultra Sound Latest Weeks Gestation Final Gilbert Confirmed By Final Gilbert Confirmed Date Final Gilbert Date Ultra Sound Latest Days Gestation 0 0 Menstrual History Last Menstrual Date Menses Monthly On Bcp Conception Prior Menses Frequency Hcg Plus Date Menarche Onset Age Delivery Information Delivery Date Delivery Type Labor Anesthesia Weeks Gestation Incision Type Labor Labor Length Hrs Delivered By Post Complications Tubal Sterilization Discharge Date Comments 1 Discharge Information Feeding Method Contraceptive Method Maternal HG B and HCT Levels Ob Episode Information Episode Created Date Number of Fetuses Patient Bloodtype Patient rh Status Prepregnancy Weight lbs Domestic Partner Domestic Partner Phone Father Name Varnish Filterer Status 07/06/19 1 CLOSED Fetus Data First Name Last Name Admitted to NICU Weight (g) Sex Living Outcome Pediatric Complications Fetus ID Race Codes Race Delivery Type 3345.24 1 F Full Term [id number] Vaginal Delivery Gilbert Calculation Initial Gilbert Date Initial Exam Date Initial Exam Provider Initial Ultrasound Date Last Menstrual Period Date Ultra Sound Weeks Gestation 0 Eighteen To Twenty Week Gilbert Update Ultra Sound Date Fundal Height At Umbil Quickening Date Ultra Sound Latest Weeks Gestation Final Gilbert Confirmed By Final Gilbert Confirmed Date Final Gilbert Date Ultra Sound Latest Days Gestation 0 0 Menstrual History Last Menstrual Date Menses Monthly On Bcp Conception Prior Menses Frequency Hcg Plus Date Menarche Onset Age Delivery Information Delivery Date Delivery Type Labor Anesthesia Weeks Gestation Incision Type Labor Labor Length Hrs Delivered By Post Complications Tubal Sterilization Discharge Date Comments 8 Discharge Information Feeding Method Contraceptive Method Maternal HG B and HCT Levels Ob Episode Information Episode Created Date Number of Fetuses Patient Bloodtype Patient rh Status Prepregnancy Weight lbs Domestic Partner Domestic Partner Phone Father Name Varnish Filterer Status 07/06/19 23 1 CLOSED Fetus Data First Name Last Name Admitted to NICU Weight (g) Sex Living Outcome Pediatric Complications Fetus ID Race Codes Race Delivery Type 3685.43 5 M Full Term [id number] Vaginal Delivery Gilbert Calculation Initial Gilbert Date Initial Exam Date Initial Exam Provider Initial Ultrasound Date Last Menstrual Period Date Ultra Sound Weeks Gestation 0 Eighteen To Twenty Week Gilbert Update Ultra Sound Date Fundal Height At [place] Quickening Date Ultra Sound Latest Weeks Gestation Final Gilbert Confirmed By Final Gilbert Confirmed Date Final Gilbert Date Ultra Sound Latest Days Gestation 0 0 Menstrual History Last Menstrual Date Menses Monthly On Bcp Conception Prior Menses Frequency Hcg Plus Date Menarche Onset Age Delivery Information Delivery Date Delivery Type Labor Anesthesia Weeks Gestation Incision Type Labor Labor Length Hrs Delivered By Post Complications Tubal Sterilization Discharge Date Comments 0 Discharge Information Feeding Method Contraceptive Method Maternal HG B and HCT Levels
--- OUTSIDE RECORDS SUMMARY | 2024-12-08 15:30 | XMS_ITS | Data Portability ---
Author Organization [facility] Address [address] [place] [address] Care Team Providers Care Take Out Waitress Name Role Phone BERNADETTE LEW Primary Care Provider Assessment No assessment recorded. Plan of Treatment Reminders Order Date Submit Date Provider Last Modified By Organization Details Last Modified Time Details Appointments ANY 15 2024 09:30A M Bernadette Lew PA-C Not available Not available Not available Lab CBC 2024 025 [facility], [address] [facility] [address], [place], [address], 10/23/2024 06:16:41 CMP, serum or plasma 2024 025 [facility], [address] [facility] [address], [place], [address], 10/23/2024 06:16:39 lipid panel, serum 2024 025 [facility], [address] [facility] [address], [place], [address], 10/23/2024 06:16:38 HbA1c (hemoglob in A1c), blood 2024 025 [facility] In-Office Order, Internal Use Only DO Not Attach Compendium DO Not Attach Compendium, Do Not Delete/merge, [id number] 10/22/2024 11:44:20 HbA1c (hemoglob in A1c), blood 2024 025 [facility] In-Office Order, Internal Use Only DO Not Attach Compendium DO Not Attach Compendium, Do Not Delete/merge, [id number] 07/24/2024 18:32:59 HbA1c (hemoglob in A1c), blood 2023 024 [place] In-Office Order, Internal Use Only DO Not Attach Compendium DO Not Attach Compendium, Do Not Delete/merge, [id number] 04/24/2024 18:28:23 Referral None recorded. Procedures None recorded. Surgeries None recorded. Imaging None recorded. Medication Orders atorvasta tin 40 mg tablet 2024 025 [id number], [address], [place], [place], [id number], 10/25/2024 10:26:21 atorvasta tin 20 mg tablet 2024 025 [id number], [address], [place], [place], [id number], 07/24/2024 18:33:06 Patient TargetsNo targets recorded. Patient Instructions Encounter Date Encounter Id Patient Instructions Last Modified By Organization Details Last Modified Time 01/24/2024 [id number] A healthy lifestyle: care instructions jnanney Not available 01/24/2024 18:08:17 learning about high blood pressure jnanney Not available 01/24/2024 18:08:17 type 2 diabetes: care instructions jnanney Not available 01/24/2024 18:08:17 04/24/2024 [id number] A healthy lifestyle: care instructions jnanney Not available 04/24/2024 18:19:03 type 2 diabetes: care instructions jnanney Not available 04/24/2024 18:14:46 07/24/2024 [id number] learning about high blood sugar jnanney Not available 07/24/2024 18:32:34 A healthy lifestyle: care instructions jnanney Not available 07/24/2024 18:32:34 learning about type 2 diabetes jnanney Not available 07/24/2024 18:32:59 type 2 diabetes: care instructions jnanney Not available 07/24/2024 18:32:59 10/22/2024 [id number] learning about high blood sugar jnanney Not available 10/22/2024 11:30:52 learning about high blood pressure jnanney Not available 10/22/2024 11:30:52 A healthy lifestyle: care instructions jnanney Not available 10/22/2024 11:30:52 10/25/2024 [id number] learning about type 2 diabetes jnanney Not available 10/25/2024 10:26:14 type 2 diabetes: care instructions jnanney Not available 10/25/2024 10:26:14 Reason for Referral None Reported. Results Created Date Observation Date Name Description Value Unit Range Abnormal Flag Note LastModifiedBy Organization Detail LastModifiedTime 04/24/20 24 04/24/2024 HbA1c (hemo globi n A1c), blood HbA1c 7.8 Not Available In-Office Order Internal Use Only DO Not Attach Compendium DO Not Attach Compendium, Do Not Delete/merge, [id number] 04/24/2024 18:15:55 07/24/19 25 07/24/2024 HbA1c (hemo globi n A1c), blood HbA1c 8.0 Not Available In-Office Order Internal Use Only DO Not Attach Compendium DO Not Attach Compendium, Do Not Delete/merge, [id number] 07/24/2024 18:31:46 10/23/19 25 10/23/2024 LIPID PANEL cholesterol, total 286 mg/dL 100-19 9 above high normal Not Available [address], [address], 10/23/2024 06:16:38 10/23/19 25 10/23/2024 LIPID PANEL triglyceride s 592 mg/dL 0-149 above high normal Not Available [address], [address], 10/23/2024 06:16:38 10/23/19 25 10/23/2024 LIPID PANEL HDL cholesterol 31 mg/dL 40-999 below low normal Not Available [address], [address], 10/23/2024 06:16:38 10/23/19 25 10/23/2024 LIPID PANEL VLDL cholesterol magy 118 mg/dL 5-40 above high normal Not Available [address], [address], 10/23/2024 06:16:38 10/23/19 25 10/23/2024 LIPID PANEL LDL chol calc (nih) 212 mg/dL 0-99 above high normal Not Available [address], [address], 10/23/2024 06:16:38 10/23/19 25 10/23/2024 COMP. METAB OLIC PANEL (14) glucose 184 mg/dL 70-99 above high normal Not Available [address], [address], 10/23/2024 06:16:39 10/23/19 25 10/23/2024 COMP. METAB OLIC PANEL (14) BUN 21 mg/dL 6-24 Not Available [facility] [address], [address], 10/23/2024 06:16:39 10/23/19 25 10/23/2024 COMP. METAB OLIC PANEL (14) creatinine 1.08 mg/dL 0.76-1 .27 Not Available [address], [address], 10/23/2024 06:16:39 10/23/19 25 10/23/2024 COMP. METAB OLIC PANEL (14) eGFR 62 >=60 Units for eGFR value s are mL/mi n/1.7 3 The eGFR Calcu latio n has not been valid ated for patie nts under the age of 18. If test resul ts are displ ayed for a patie nt under the age of 18, disre elizabeth that value . Not Available [address], [address], 10/23/2024 06:16:39 10/23/19 25 10/23/2024 COMP. METAB OLIC PANEL (14) BUN/creatini ne ratio 19 9-23 Not Available [address], [address], 10/23/2024 06:16:39 10/23/19 25 10/23/2024 COMP. METAB OLIC PANEL (14) sodium 140 mmol/ L 134-14 4 Not Available [address], [address], 10/23/2024 06:16:39 10/23/19 25 10/23/2024 COMP. METAB OLIC PANEL (14) potassium 4.8 mmol/ L 3.5-5. 2 Not Available [address], [address], 10/23/2024 06:16:39 10/23/19 25 10/23/2024 COMP. METAB OLIC PANEL (14) chloride 103 mmol/ L 96-106 Not Available [address], [address], 10/23/2024 06:16:39 10/23/19 25 10/23/2024 COMP. METAB OLIC PANEL (14) carbon dioxide, total 23 mmol/ L 20-29 Not Available [address], [address], 10/23/2024 06:16:39 10/23/19 25 10/23/2024 COMP. METAB OLIC PANEL (14) calcium 9.6 mg/dL 8.7-10 .2 Not Available [address], [address], 10/23/2024 06:16:39 10/23/19 25 10/23/2024 COMP. METAB OLIC PANEL (14) protein, total 6.9 g/dL 6.0-8. 5 Not Available [address], [address], 10/23/2024 06:16:39 10/23/19 25 10/23/2024 COMP. METAB OLIC PANEL (14) albumin 4.4 g/dL 3.8-4. 9 Not Available [address], [address], 10/23/2024 06:16:39 10/23/19 25 10/23/2024 COMP. METAB OLIC PANEL (14) globulin, total 2.5 g/dL 1.5-4. 5 Not Available [address], [address], 10/23/2024 06:16:39 10/23/19 25 10/23/2024 COMP. METAB OLIC PANEL (14) A/G ratio 2.0 1.2-2. 2 Not Available [address], [address], 10/23/2024 06:16:39 10/23/19 25 10/23/2024 COMP. METAB OLIC PANEL (14) bilirubin, total 0.3 mg/dL 0.0-1. 2 Not Available [address], [address], 10/23/2024 06:16:39 10/23/19 25 10/23/2024 COMP. METAB OLIC PANEL (14) alkaline phosphatase 51 IU/L 44-121 Not Available [address], [address], 10/23/2024 06:16:39 10/23/19 25 10/23/2024 COMP. METAB OLIC PANEL (14) AST (SGOT) 17 U/L 0-40 Not Available [address], [address], 10/23/2024 06:16:39 10/23/19 25 10/23/2024 COMP. METAB OLIC PANEL (14) ALT (SGPT) 21 IU/L 0-32 Not Available [address], [address], 10/23/2024 06:16:39 10/23/19 25 10/23/2024 CARDI OVASC ULAR REPOR T interpretati on Note Suppl ement al repor t is avail able. Not Available [address], [address], 10/23/2024 06:16:40 10/23/1910/23/2024 CARDI OVASC ULAR REPOR T pdf . Not Available [address], [address], 10/23/2024 06:16:40 10/23/19 25 10/22/2024 CBC, PLATE LET, NO DIFFE RENTI AL WBC 6.7 x10e3 /uL 3.4-10 .8 Not Available [address], [address], 10/23/2024 06:16:41 10/23/19 25 10/22/2024 CBC, PLATE LET, NO DIFFE RENTI AL RBC 5.42 x10e6 /uL 3.77-5 .28 above high normal Not Available [address], [address], 10/23/2024 06:16:41 10/23/19 25 10/22/2024 CBC, PLATE LET, NO DIFFE RENTI AL hemoglobin 15.2 g/dL 11.1-1 5.9 Not Available [address], [address], 10/23/2024 06:16:41 10/23/19 25 10/22/2024 CBC, PLATE LET, NO DIFFE RENTI AL hematocrit 47.8 % 34.0-4 6.6 above high normal Not Available [address], [address], 10/23/2024 06:16:41 10/23/19 25 10/22/2024 CBC, PLATE LET, NO DIFFE RENTI AL MCV 88 fL 79-97 Not Available [address], [address], 10/23/2024 06:16:41 10/23/19 25 10/22/2024 CBC, PLATE LET, NO DIFFE RENTI AL MCH 28.0 pg 26.6-3 3.0 Not Available [address], [address], 10/23/2024 06:16:41 10/23/19 25 10/22/2024 CBC, PLATE LET, NO DIFFE RENTI AL MCHC 31.8 g/dL 31.5-3 5.7 Not Available [address], [address], 10/23/2024 06:16:41 10/23/1910/22/2024 CBC, PLATE LET, NO DIFFE RENTI AL RDW 13.8 % 11.5-1 4.5 Not Available [address], [address], 10/23/2024 06:16:41 10/23/19 25 10/22/2024 CBC, PLATE LET, NO DIFFE RENTI AL platelets 223 x10e3 /uL 150-45 0 Mean Plate let Volum e 10.0 fL 8.9-1 2.7 N Not Available [address], [address], 10/23/2024 06:16:41 10/23/19 25 10/22/2024 CBC, PLATE LET, NO DIFFE RENTI AL NRBC 0 % 0-0 Not Available Roxann Tolentino [facility] [address] [facility], [place], [address], 10/23/2024 06:16:41 10/23/1910/22/2024 HbA1c (hemo globi n A1c), blood HbA1c 9.0 Not Available In-Office Order Internal Use Only DO Not Attach Compendium DO Not Attach Compendium, Do Not Delete/merge, [id number] 10/22/2024 11:30:35 Result Notes None recorded. Medical Equipment None Reported. Allergies No known drug allergies Medications Name Sig Start Date Stop Date Status Note LastModified by Organization Details LastModified Time cyclobenzap rine 10 mg tablet TAKE 1 TABLET BY MOUTH EVERY 8 HOURS FOR 7 DAYS NEEDED FOR MUSCLE SPASM 03/31 completed Not Available Not Available Not Available amoxicillin 500 mg capsule TAKE 1 CAPSULE BY MOUTH EVERY 8 HOURS FOR 10 DAYS 03/31 completed Not Available Not Available Not Available atorvastati n 40 mg tablet TAKE 1 TABLET BY MOUTH EVERY DAY active Not Available Not Available No t Available atorvastati n 20 mg tablet TAKE 1 TABLET BY MOUTH EVERY DAY active Not Available Not Available No t Available ibuprofen 800 mg tablet TAKE 1 TABLET BY MOUTH THREE TIMES DAILY NEEDED FOR PAIN 03/31 completed Not Available Not Available Not Available tizanidine 4 mg tablet TAKE 1 TABLET BY MOUTH EVERY 8 HOURS NEEDED FOR MUSCLE SPASMS 09/28 completed Not Available Not Available Not Available meloxicam 15 mg tablet TAKE 1 TABLET BY MOUTH TAKE DIRECTED FOR PAIN AND INFLAMMAT ION TAKE WITH FOOD 09/28 completed Not Available Not Available Not Available ondansetron HCl 4 mg tablet TAKE 1 TABLET BY MOUTH EVERY 6 HOURS active Not Available Not Available No t Available amlodipine 5 mg tablet TAKE 1 TABLET BY MOUTH EVERY DAY 04/24 completed Not Available Not Available Not Available tramadol 50 mg tablet TAKE 1 TABLET BY MOUTH EVERY 6 HOURS FOR PAIN. TAKE WITH FOOD. IF PAIN IS NOT RELIEVED BY MELOXICAM ALONE ELANA 500 TO 650 MG OF TYLENOL WITH EACH 09/28 completed Not Available Not Available Not Available neomycin-ba citracin-po lymyxn 3.5 mg-400 unit-10,000 unit/gram eye oint PETTY 1 THIN LAYER IN EACH EYE TID 08/29 completed Not Available Not Available Not Available Guaiatussin AC 10 mg-100 mg/5 mL oral liquid Take 10 mL every 4 hours by oral route for 10 days. 08/29 completed Not Available Not Available Not Available amoxicillin 875 mg tablet TAKE 1 TABLET BY MOUTH EVERY 12 HOURS FOR 10 DAYS 03/31 completed Not Available Not Available Not Available diazepam 2 mg tablet TAKE 1 TABLET BY MOUTH NIGHTLY NEEDED TO RELAX MUSCLES AND HELP WITH SLEEP 03/31 completed Not Available Not Available Not Available erythromyci n 5 mg/gram (0.5 %) eye ointment APPLY 1/2 INCH IN LEFT EYE THREE TIMES DAILY 04/24 completed Not Available Not Available Not Available metformin 1,000 mg tablet TAKE 1 TABLET BY MOUTH TWICE DAILY 04/24 completed Not Available Not Available Not Available progesteron e micronized 200 mg capsule TAKE 1 CAPSULE BY MOUTH EVERY DAY FOR 12 DAYS active Not Available Not Available No t Available cefdinir 300 mg capsule TAKE 1 CAPSULE BY MOUTH EVERY 12 HOURS 11/14 completed Not Available Not Available Not Available naproxen 500 mg tablet TAKE 1 TABLET BY MOUTH TWICE DAILY FOR 7 DAYS NEEDED FOR PAIN 03/31 completed Not Available Not Available Not Available amoxicillin 875 mg-potassiu m clavulanate 125 mg tablet TAKE 1 TABLET BY MOUTH TWICE DAILY FOR 10 DAYS 03/31 completed Not Available Not Available Not Available ibuprofen 800mg 1 PO Q8hrs 08/15 completed Not Available Not Available Not Available Lantus Solostar U-100 Insulin 100 unit/mL (3 mL) subcutaneou s pen INJECT 36 UNTIS UNDER THE SKIN AT BEDTIME 11/14 completed Not Available Not Available Not Available OneTouch Verio test strips TEST TWICE DAILY active Not Available Not Available No t Available Jardiance 25 mg tablet TAKE 1 TABLET BY MOUTH EVERY DAY active Not Available Not Available No t Available TRUEplus Pen Needle 32 gauge x USE DIRECTED 10/22 completed Not Available Not Available Not Available OneTouch Delica Plus Lancet 33 gauge TEST TWICE DAILY active Not Available Not Available No t Available Vitals Date Recorded Body height Body mass index (BMI) Body weight Oxygen saturation Oxygen saturation in Arterial blood by Pulse oximetry Heart rate Respiratory rate Systolic And Diastolic Provider Name and Address Organization Details Last Updated DateTime 5 175.26 cm 47.9 kg/m2 821726. 36 g 98 % 98 % 86 /min 16 /min 128/86 mm[Hg] Jaci Allen MA [facility] 5 18:06:55 Date Recorded Body height Body mass index (BMI) Body weight Oxygen saturation Oxygen saturation in Arterial blood by Pulse oximetry Heart rate Systolic And Diastolic Provider Name and Address Organization Details Last Updated DateTime 5 175.26 cm 47.6 kg/m2 043878. 74 g 95 % 95 % 76 /min 128/84 mm[Hg] Adelina Guerrero MA [facility] 5 11:07:48 Date Recorded Body height Body mass index (BMI) Body weight Oxygen saturation Oxygen saturation in Arterial blood by Pulse oximetry Heart rate Respiratory rate Systolic And Diastolic Provider Name and Address Organization Details Last Updated DateTime 5 175.26 cm 47.6 kg/m2 099383. 74 g 99 % 99 % 69 /min 16 /min 134/86 mm[Hg] Jaci Allen MA [facility] 5 09:57:40 Date Recorded Body height Body mass index (BMI) Body weight Oxygen saturation Oxygen saturation in Arterial blood by Pulse oximetry Heart rate Respiratory rate Systolic And Diastolic Provider Name and Address Organization Details Last Updated DateTime 4 175.26 cm 47.9 kg/m2 252484. 36 g 98 % 98 % 78 /min 16 /min 117/76 mm[Hg] Jaci Allen MA [facility] 4 18:01:23 Date Recorded Body height Body mass index (BMI) Body weight Oxygen saturation Oxygen saturation in Arterial blood by Pulse oximetry Heart rate Systolic And Diastolic Provider Name and Address Organization Details Last Updated DateTime 4 175.26 cm 48.5 kg/m2 750325. 4 g 95 % 95 % 75 /min 136/82 mm[Hg] Concetta Love MA [facility] 4 17:46:40 Social History Question Answer Notes LastModified by Organizat ion Details LastModified Time Tobacco Smoking Status Never Smoker Natalie Crowder MA [facility] 09/29/2016 17:39:40 Are You Blind Or Do You Have Difficulty Seeing? Yes Glasses Information not available 03/31/2022 What Is Your Level Of Caffeine Consumption? Moderate Information not available 03/31/2022 In The 14 Days Before Symptom Onset, Have You Had Close Contact With A Laboratory-confir med COVID-19 While That Case Was Ill? No Information not available 08/29/2020 In The 14 Days Before Symptom Onset, Have You Had Close Contact With A Person Who Is Under Investigation For COVID-19 While That Person Was Ill? No Information not available 08/29/2020 Have You Been To An Area Known To Be High Risk For COVID-19? No Information not available 08/29/2020 What Type Of Diet Are You Following? REGULAR Information not available 08/29/2020 What Was The Date Of Your Most Recent Tobacco Screening? 10/25/2024 Information not available 10/25/2024 What Is Your Relationship Status? Information not available 08/29/2020 Do You Use Your Seat Belt Or Car Seat Routinely? Yes Information not available 01/24/2024 Do You Have Smoke And Carbon Monoxide Detectors In Your Home? Yes Information not available 03/31/2022 Are You Passively Exposed To Smoke? Yes Information no t available 03/31/2022 How Much Tobacco Do You Smoke? No [email or web address] Information not available 09/29/2016 Has Tobacco Cessation Counseling Been Provided? No Information not available 10/22/2024 On What Date Was Tobacco Cessation Counseling Provided? 10/25/2024 Information not available 10/25/2024 Sex: Female Functional Status Question Answer Note LastModified by Organizat ion Details LastModified Time Do you use any illicit or recreational drugs? No Information not available 08/29/2020 Do you or have you ever used any other forms of tobacco or nicotine? No Information not available 01/24/2024 What is your level of alcohol consumption? None Information not available 08/29/2020 Are you currently employed? Yes Information not available 08/29/2020 Are you able to care for yourself? Yes Information not available 08/29/2020 What is your occupation? [employer] Information not available 08/29/2020 What is your exercise level? None Information not available 10/11/2023 Mental Status Question Answer Note LastModified by Organization D etails LastModified Time Do you feel stressed (tense, restless, nervous, or anxious, or unable to sleep at night)? [id number] Information not available 03/31/2022 Family History Relationship Description Onset Age of this Age Resolved Age Notes LastModified by Organization Details LastModified Time Father No current problems or disability [email or web address] Not available 08/29 14:18:56 Mother No current problems or disability [email or web address] Not available 08/29 14:18:56 Medical History Condition Response Coronary Artery Disease N Other N Atrial Fibrillation N High Blood Pressure N Depression N COPD N Blood Clots N Anxiety Disorder N Muscle, Joint, or Bone Problems N Arthritis N Acid Reflux (GERD) N Cancer N Stroke N ADHD N High Cholesterol N Liver Disease N Schizophrenia N Headaches N Thyroid Problems N Kidney or Bladder Problems N GI Problems N Have you had a mammogram in the last yea r? N Eating Disorder N Skin Problems N Anemia N Heart Attack (AK) N Diabetes N Seizures/Epilepsy N Have you had a colonoscopy in the last 1 0 years? N Asthma N Allergies N Have you had a PSA blood test in the las t year? N Substance Abuse N Hepatitis N Heart Failure N Osteoporosis N Gynecological History Statement/Question Response Date of Last Pap Smear Current Control Method Ablation Date of Last Mammogram Date of LMP 09/05/2023 Obstetrics History GPAL:G 4 P 4 0 0 4 Type Value Full Term 4 Living 4 Total 4 Past Encounters Encounter ID Performer Location Encounter Start Date Encounter Closed Date Diagnosis/Indication Diagnosis SNOMED-CT Code Diagnosis ICD10 Code Diagnosis Note [id number] Andrés Land MD [facility] [address] [place] [address] 09/29/2016 17:32:43 09/29/2016 18:32:58 Acute low back pain 163346482 M54.5 [id number] Bernadette Lew PA-C [facility] [address] [place] [address] 08/16/2019 14:08:57 08/17/2019 12:50:28 Acute bronchitis with bronchospasm 79801823 J20.9 [id number] Andrés Land MD [facility] [address] [place] [address] 08/29/2020 10:35:42 09/02/2020 09:49:28 Acute maxillary sinusitis 21456502 J01.01 [id number] Bernadette Lew PA-C [facility] [address] [place] [address] 03/31/2022 16:11:45 04/01/2022 09:38:12 Spasm of muscle of lower back 9203436246 3435733 M62.830 Morbid obesity 635133574 E66.01 Overweight 405370034 E66 .3 [id number] Andrés Land MD [facility] [address] [place] [address] 09/29/2023 14:08:06 10/05/2023 15:49:40 Acute urinary tract infection 960064730 N10 Morbid obesity 281661859 E66.01 Impaired g lucose tolerance 6488776 R73.03 Essential hypertension 77247298 I10 [id number] Andrés Land MD [facility] [address] [place] [address] 10/11/2023 18:43:01 10/12/2023 12:47:38 Acute urinary tract infection 565069166 N10 Screening for malignant neoplasm of colon 152234641 Z12.11 Morbid obesity 954752533 E66.01 [id number] Andrés Land MD [facility] [address] [place] [address] 11/15/2023 18:01:57 11/16/2023 09:25:09 Overweight 102606537 E66.3 Essential hypertension 21382346 I10 Type 2 rizwan betes mellitus 23486283 E11.9 History of urinary tract infection 0547726123 107 Z87.378 [id number] Bernadette Lew PA-C [facility] [address] [place] [address] 01/24/2024 17:43:26 01/30/2024 08:50:29 Type 2 diabetes mellitus without complication 493672827 E11.9 Essential hypertension 37523312 I10 Overweight 693871058 E66 .3 [id number] Andrés Land MD [facility] [address] [place] [address] 04/24/2024 17:39:21 05/02/2024 12:28:39 Type 2 diabetes mellitus without complication 053413502 E11.9 Overweight 091031523 E66 .3 [id number] Andrés Land MD [facility] [address] [place] [address] 07/24/2024 17:59:42 07/30/2024 09:19:10 Hyperglycemia 85224388 R73.03 Mixed hyperlipidemia 267 108160 E78.2 Overweight 360128263 E66 .3 Type 2 rizwan betes mellitus 39781772 E11.9 [id number] Andrés Land MD [facility] [address] [place] [address] 10/22/2024 10:55:25 10/23/2024 13:51:34 Hyperglycemia 45277065 R73.9 Mixed hyperlipidemia 267 826422 E78.2 Essential hypertension 82819396 I10 controlled Obese class III 31381569 5 E66.146 [id number] Andrés Land MD [facility] [address] [place] [address] 10/25/2024 09:51:02 10/26/2024 08:09:13 Type 2 diabetes mellitus 98680940 E11.9 recheck 3 months Mixed hyperlipidemia 267 945938 E78.2 Obese class III 67212692 5 E66.813 Health Concerns Section Related Observation LastModified by Organization Detai ls LastModified Time None Recorded Concern Status LastModified by Organization Details LastModified Time None Recorded Advance Directives Directive None Recorded Payers Insurance Date Sequence Insurance Name Policy Number Policy Decker Covered Member ID Decker Member ID Guarantor Name 10/25/2024 1 [facility] ON OR AFTER 12/04/20 (MEDICAID REPLACEMENT - HMO) Fito Finn [id number] Fito Finn 10/22/2024 1 [facility] - DOS PRIOR TO 2020 (MEDICAID REPLACEMENT - HMO) Fito Finn [id number] Fito Finn 10/22/2024 [place] [facility] Fito Finn [id number] Fito Finn 08/16/2019 1 *SELF PAY* Lenny Finn Notes Date Note Type Note Provider Name and Address Organization Details Recorded Time 01/24/2024 text/html would like to try and get off metformin and amlodipine....'d oesnt like side effects... Bernadette Lew PA-C Attn: [address] [place], [address], [facility] 01/24/2024 18:09:29 04/24/2024 text/html 3 month vs a1c...all is well...sugars at home 130-170...no meds currently...has been compliant with diet... Bernadette Lew PA-C Attn: [address] [place], [address], [facility] 04/24/2024 18:19:18 07/24/2024 text/html needs a1c vs diabetes.. Bernadette Lew PA-C Attn: [address] [place], [address], [facility] 07/24/2024 18:33:17 10/22/2024 text/html 3 month vs hyperglycemia... also denny castañeda...has some personal drama also and says that her labs are going to be off... Bernadette Lew PA-C Attn: [address] [place], [address], [facility] 10/22/2024 11:31:52 10/25/2024 text/html discuss labs..cholestero l blood sugar is better than when she started but is trending up..reports she is aware of her carbs and is cutting Bernadette Lew PA-C Attn: [address] [place], [address], [facility] 10/25/2024 10:27:02 OBGyn Episode Ob Episode Information Episode Created Date Number of Fetuses Patient Bloodtype Patient rh Status Prepregnancy Weight lbs Domestic Partner Domestic Partner Phone Father Name Director Of Outpatient Services Status 04/24/20 24 1 CLOSED Fetus Data First Name Last Name Admitted to NICU Weight (g) Sex Living Outcome Pediatric Complications Fetus ID Race Codes Race Delivery Type Full Term [id number] Gilbert Calculation Initial Gilbert Date Initial Exam [...] Domestic Partner Domestic Partner Phone Father Name Director Of Outpatient Services Status 04/24/20 24 1 CLOSED Fetus Data First Name Last Name Admitted to NICU Weight (g) Sex Living Outcome Pediatric Complications Fetus ID Race Codes Race Delivery Type Full Term [id number] Gilbert Calculation Initial Gilbert Date Initial Exam [...] Domestic Partner Domestic Partner Phone Father Name Director Of Outpatient Services Status 04/24/20 24 1 CLOSED Fetus Data First Name Last Name Admitted to NICU Weight (g) Sex Living Outcome Pediatric Complications Fetus ID Race Codes Race Delivery Type Full Term [id number] Gilbert Calculation Initial Gilbert Date Initial Exam [...] Domestic Partner Domestic Partner Phone Father Name Director Of Outpatient Services Status 04/24/20 24 1 CLOSED Fetus Data First Name Last Name Admitted to NICU Weight (g) Sex Living Outcome Pediatric Complications Fetus ID Race Codes Race Delivery Type Full Term [id number] Gilbert Calculation Initial Gilbert Date Initial Exam [...]
--- OUTSIDE RECORDS SUMMARY | 2024-12-08 15:32 | XMS_ITS | Referral Summary ---
Author Organization [facility] Address [address] [place] [address] Care Team Providers Care Repairer Engine Production Name Role Phone Ray Lew Primary Care Provider [phone] Allergies No known active allergies Medications meloxicam (MOBIC) 15 mg tablet Take 1 tablet (15 mg total) by mouth daily Take as directed for pain and inflammation. Take with food. Collaborating physician Nazario Cuevas MD 30 tablet 2 Active diazePAM (VALIUM) 2 mg tablet Take 1 tablet (2 mg total) by mouth nightly as needed (Take as directed to relax muscles and help sleep.) Collaborating physician Nazario Cuevas MD 15 tablet 2 Active Additional Information Patient not taking.Reported on 04/27/2022 traMADoL (ULTRAM) 50 mg tablet Take 1 tablet (50 mg total) by mouth every 6 (six) hours P.r.n. pain not relieved by meloxicam alone. Take with food. Take 500 mg to 650 mg of acetaminophen with each dose. Collaborating physician Nazario Cuevas MD 15 tablet 2 Active tiZANidine (ZANAFLEX) 4 mg tablet Take 1 tablet (4 mg total) by mouth every 8 (eight) hours as needed for muscle spasms Collaborating physician Nazario Cuevas MD 15 tablet 2 Active amoxicillin (AMOXIL) 500 mg tablet/capsule amoxicillin 500 mg capsule TAKE 1 CAPSULE BY MOUTH EVERY 8 HOURS FOR 10 DAYS Active cyclobenzaprin e (FLEXERIL) 10 mg tablet TAKE 1 TABLET BY MOUTH EVERY 8 HOURS FOR 7 DAYS NEEDED FOR MUSCLE SPASM 2 Active naproxen (NAPROSYN) 500 mg tablet TAKE 1 TABLET BY MOUTH TWICE DAILY FOR 7 DAYS NEEDED FOR PAIN 2 Active acetaminophen (TYLENOL) 325 mg tablet Take 650 mg by mouth every 6 (six) hours as needed for pain Active norethindrone- e.estradioL-ir on (LOESTIN 24 FE) 1 mg-20 mcg (24)/75 mg (4) per tablet Take 1 tablet by mouth daily 28 tablet 3 Active ondansetron (ZOFRAN) 4 mg tablet Take 1 tablet (4 mg total) by mouth every 6 (six) hours 12 tablet 5 Active meclizine (ANTIVERT) 25 mg tablet Take 1 tablet (25 mg total) by mouth 3 (three) times a day as needed for dizziness 30 tablet 5 Active Active Problems Problem Noted Date Diagnosed Date Lumbar spondylosis 03/21/2022 Lumbar strain, subsequent encounter 03/21/2022 Osteoarthritis of right knee 03/21/2022 Sprain of right knee 03/21/2022 Social History Tobacco Use Types Packs/Day Years Used Date Smoking Tobacco: Never Tobacco Cessation:Counseling Given: Not Answered Personal Safety Answer Date Recorded Have you ever been in or are you currently in a harmful physical or emotional relationship or is someone making you feel afraid or unsafe? 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 Not on file Not on file Last Filed Vital Signs Vital Sign Reading Time Taken Comments Blood Pressure 134/77 08/25/2024 3:45 AM CDT Pulse 76 08/25/2024 3:45 AM CDT Temperature 36.6 C (97.8 F) 08/25/2024 12:19 AM CDT Respiratory Rate 18 08/25/2024 12:19 AM CDT Oxygen Saturation 93% 08/25/2024 3:45 AM CDT Inhaled Oxygen Concentration - - Weight 146.5 kg (323 lb) 08/25/2024 12:19 AM CDT Height 175.3 cm (5' 9) 08/25/2024 12:19 AM CDT Body Mass Index 47.7 08/25/2024 12:19 AM CDT Plan of Treatment Not on file Insurance [facility] Care Teams Repairer Engine Production Relationship Specialty Start Date End Date Ray Lew PA [address] [place] [address] PCP - General 09/10/16
--- OUTSIDE RECORDS SUMMARY | 2024-12-08 15:32 | XMS_ITS ---
Author Organization Unknown Plan of Treatment Description Planned Activity Planned Timing [facility] is a provider organization who partners directly with Health Plans and provides integrated primary care, behavioral health, and director social welfare for an attributed population Letter encounter to patientTelephone encounter Nov 29, 2024Jul 2024 Patient Care team information Name Category Status Period Participants - - Proposed period not known -
--- OUTSIDE RECORDS SUMMARY | 2024-12-08 15:32 | XMS_ITS | Clinical Summary ---
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 on file Not on file Obstetrics History Para Term AB IAB SAB Ectopic Multiple Livin g Live Births 4 4 Date Outcome GA Total Labor Labor/2nd/3rd Weight Sex Type Anes PTL Salome A1 A5 Name Clin Para Para Para Para Last Filed Vital Signs Vital Sign Reading [...] 08/25/2024 12:19 AM CDT Plan of Treatment Health Maintenance Due Date Last Done Comments Breast Cancer Screening-Mammogram 1972 Cervical Cancer Screening 1972 Colon Cancer Screening-Colonoscopy 1972 Depression Screening 1972 Hepatitis C Screening 1972 DTaP/Tdap/Td Vaccine (1 - Tdap) 08/11/1983 Hepatitis B Screening 1990 Regular Well Visit/Exam 18-64 1990 Zoster Vaccine (1 of 2) 2022 Influenza Vaccine (Season Ended) 2025 Pneumococcal vaccine <65 Aged Out No longer eligible based on patient's age to complete this topic Insurance [facility] Care Teams Print And Pattern Designer Relationship Specialty Start Date End Date Ray Lew PA [address] [place] [address] PCP - General 09/10/16
--- NOTE | 2024-12-08 15:42 | ED.SKABFB ---
HPI - Skin/Abscess/Foreign Bdy General Chief complaint: Skin/Abscess/Foreign Body Stated complaint: Skin Sore / Left Hand Patient presents here suppress care with complaints of getting bit by something earlier this week. Patient noted that she had a small red deedee to the left hand and then over the last couple days this appears to have a pus pocket. Patient noted that he she has another small red deedee next to this that she noticed today. Patient has been applying Neosporin to the area and covering with a bandage. Denies fever, chills, body aches, or drainage from area. Related Data Home Medications ?Medication ?Instructions ?Recorded ?Confirmed ?Last Taken ?Type atorvastatin 40 mg tablet mg 12/08/24 Unknown History empagliflozin 25 mg tablet mg 12/08/24 Unknown History (Jardiance) Allergies Allergy/AdvReac Type Severity Reaction Status Date / Time No Known Allergies Allergy Verified 12/08/24 15:40 Review of Systems Constitutional: Constitutional: Reports as per HPI, Denies chills, Denies fatigue, Denies fever(s) and Denies weakness Eyes: Eyes: Reports no additional eye complaints Cardiovascular: Cardiovascular: Reports no additional cardiovascular complaints Respiratory: Respiratory: Reports no additional respiratory complaints Gastrointestinal: Gastrointestinal: Reports no additional gastrointestinal complaints Genitourinary: Genitourinary: Reports no additional female genitourinary complaints Musculoskeletal: Musculoskeletal: Reports no additional musculoskeletal complaints Integumentary/Breasts: Skin/Breast: Reports as per HPI, Reports pruritus, Reports erythema, Denies rash and Denies skin ulcer Comments: Small red area left hand, pus pocket left hand Neurologic: Reports as per HPI, Denies numbness and Denies weakness Psychiatric: Psychiatric: Reports no additional psychiatric complaints Endocrine: Endocrine: Reports no additional endocrine complaints Hematologic/Lymphatic: Hematologic/Lymphatic: Reports no additional hematologic/lymphatic complaints Allergic/Immunologic: Allergic/Immunologic: Reports no additional allergic/immunologic complaints [facility] Past Medical History Medical History Diabetes type 2, uncontrolled Uterine fibroid Family History Family History Other No acute medical problems Social History Social History Smoking status: Never smoker Alcohol intake: never Substance use: never Substance use type: does not use Do You Feel Safe in your Home?: Yes Lack of Transportation: No Lack of Food: Never True Current Housing: I Have Housing Concerned About Future Housing: No Difficulty Paying Gas/Electric Bills: No Difficulty Paying for Meds: No Currently Unemployed: No Education: High School Diploma/GED Difficulty w/ Childcare or Family Care: No Living arrangements: with family Spiritual care concerns: No Exam Const: General: healthy appearing and no acute distress Nutritional Appearance: well nourished Orientation/consciousness: patient oriented x3 Limitations: no limitations Resp: Effort & Inspection: normal respiratory effort Auscultation: clear to auscultation bilaterally Cardio: Rate: regular rate Rhythm: regular rhythm Skin: General skin exam: normal color Other: small pustule noted to left hand with surrounding erythema. No active drainage or crusting. Neuro: General: patient oriented x3 Speech: normal speech Gait exam (Neuro): Normal gait present Extrem: Right upper extremity: Extremity exam: right hand ( Pustule noted) abnormal to inspection, normal capillary refill, tenderness, normal ROM of fingers and warmth Psych: Mental Status: mental status grossly normal Affect: normal affect Attitude: cooperative Course Course Level of Care: Express Care Visit Procedures Abscess I/D hand: Date of Incision: 12/08/24 Time of Incision: 15:55 Side (if applicable): left Technique: needle aspiration Amount of fluid expressed (mL): 0.25 Irrigation: No Packing used?: none I&D Results: Pus MDM - Skin/Abscess/Foreign Bdy MDM Narrative Medical decision making narrative: small I&D noted. Will place patient on antibiotics. Encourage warm compresses. Discharge instructions reviewed with patient, as well as provided in writing per nursing staff. The instructions also include specific and strict return/GO TO THE ER as well as f/u information. All questions have been answered, and the patient deny any further questions with discharge and discharge plan. Differential Diagnosis Differential diagnosis: Likely abscess of skin or subcutaneous tissue, urticaria, cellulitis and contact dermatitis Medical Records Attestation: I reviewed the patient's medical records. Discharge Plan Discharge Clinical Impression: Cellulitis and abscess of hand Patient Disposition: Home Condition: Stable Instructions: Antibiotic Form, Cellulitis (ED) Additional Instructions: DO NOT pick at the area. This will only make the area worse and drive infection deeper. Shower and wash with soapy water. Keep area clean and dry. Take all the antibiotics as prescribed. Remove the packing, about a ? inch daily until it falls out. Make sure to keep a dressing in place especially while it is draining Follow up with PCP in 7-10 days Return to Urgent care or go to the ER for worsened condition or Symptoms Patient Language: Spanish Prescriptions: New cephalexin 500 mg capsule 500 mg PO Q12H Qty: 14 0RF No Action atorvastatin 40 mg tablet Jardiance 25 mg tablet amlodipine 5 mg tablet 5 mg PO DAILY Qty: 30 0RF Follow-up/Referrals: Louann,PRIYANKA Jacinto [Primary Care Provider] - Time of Disposition: 15:57
[2024-12-08 15:43] VITALS: BP 142/67; PULSE 68; RESP 20; TEMP 36.9; O2SAT 98
== END 2024-12-08 16:00 | disposition home or self-care (01) ==
PROVIDERS: Emergency Provider Nurse Practitioner Family; PCP Physician Assistant
DX: L03.114 Cellulitis of left upper limb (principal); L02.512 Cutaneous abscess of left hand; E11.9 Type 2 diabetes mellitus without complications
CPT/HCPCS: 10060; 99213; G0463